=== PATIENT | male | born 1940 | race Caucasian/White ===

== ENCOUNTER 2018-03-04 07:31 | Emergency (ER) | payer MEDICARE ==
[~2018-03-04] VITALS: Ht 180.3 cm; Wt 113.4 kg
[2018-03-04] MEDS ORDERED: LYRICA50 MG PO (08:48)
[2018-03-04] MEDS ORDERED: ATORVASTATIN CA20 MG PO (08:48)
[2018-03-04] MEDS ORDERED: CLOPIDOGREL75 MG PO (09:01)
[2018-03-04] MEDS ORDERED: CARVEDILOL12.5 MG PO (09:01)
[2018-03-04] MEDS ORDERED: FLUTICASONE PRO16 GM (09:01)
[2018-03-04] MEDS ORDERED: BUMETANIDE1 MG PO (09:01)
[2018-03-04] MEDS ORDERED: PANTOPRAZOLE SO40 MG PO (09:01)
[2018-03-04] MEDS ORDERED: SPIRONOLACTONE25 MG PO (09:01)
[2018-03-04] MEDS ORDERED: TAMSULOSIN HCL0.4 MG PO (09:01)
[2018-03-04] MEDS ORDERED: RANITIDINE HCL150 MG PO (09:01)
[2018-03-04] MEDS ORDERED: GLIMEPIRIDE2 MG PO (09:01)
[2018-03-04 12:23] VITALS: BP 139/77
--- NOTE | 2018-03-08 12:18 | Diagnostic Imaging Report ---
PROCEDURE:CXR 2 VIEW - HOPD COMPARISON:None. INDICATIONS:cough FINDINGS: Lines: Left sided dual chamber pacemaker with leads overlying the right atrium and right ventricle. Lungs: Moderate lung volumes. Mild cephalization of venous flow without evidence of pulmonary edema. Mild patchy right basilar opacity with slight elevation of the right hemidiaphragm. No evidence of lobar consolidation. Mild bronchial wall thickening. Pleura: No evidence of pleural effusion or pneumothorax. Heart and mediastinum: The cardiomediastinal silhouette is unremarkable. Bones: No acute bony findings. CONCLUSION: Mild bronchial wall thickening, which could reflect bronchitis in a patient with cough. Mild patchy right basilar opacity, likely atelectasis. No evidence of lobar pneumonia. Dictated by: AYDEN MARTE M.D. on 03/04/2018 at 10:06 Electronically approved by: AYDEN MARTE M.D. on 03/04/2018 at 10:06
--- NOTE | 2018-03-08 12:18 | Diagnostic Imaging Report ---
PROCEDURE:ABDOMEN 1 VIEW(KUB)-HOPD COMPARISON:None. INDICATIONS:constipation FINDINGS: Non-obstructive bowel gas pattern. Small amount of stool is noted in the left colon. No evidence of free intraperitoneal air. No abnormal calcifications are noted. No acute bony findings. CONCLUSION: Unremarkable abdominal radiographs. No significantly elevated stool burden as clinically queried. Dictated by: AYDEN MARTE M.D. on 03/04/2018 at 10:09 Electronically approved by: AYDEN MARTE M.D. on 03/04/2018 at 10:09
== END 2018-03-04 11:01 | disposition home or self-care (01) ==
LOC: FSED 07:31
DX: R05 Cough (principal); R11.0 Nausea; J20.9 Acute bronchitis, unspecified; N18.9 Chronic kidney disease, unspecified; I10 Essential (primary) hypertension; E11.9 Type 2 diabetes mellitus without complications; I50.9 Heart failure, unspecified; Z95.5 Presence of coronary angioplasty implant and graft; Z95.810 Presence of automatic (implantable) cardiac defibrillator
CPT/HCPCS: 71046; 74018; 80053; 81003; 82553; 83880; 84484; 85025; 99284

== ENCOUNTER 2018-05-11 15:35 | Emergency (ER) | payer MEDICARE ==
[~2018-05-11] VITALS: Ht 180.3 cm; Wt 113.4 kg
[~2018-05-11 15:35] MED LIST: ATORVASTATIN CA20 MG PO; BUMETANIDE1 MG PO; CARVEDILOL12.5 MG PO; CLOPIDOGREL75 MG PO; FLUTICASONE PRO16 GM; GLIMEPIRIDE2 MG PO; LYRICA50 MG PO; PANTOPRAZOLE SO40 MG PO; RANITIDINE HCL150 MG PO; SPIRONOLACTONE25 MG PO; TAMSULOSIN HCL0.4 MG PO
--- OUTSIDE RECORDS SUMMARY | 2018-05-11 15:39 | XMS REPORT | Clinical Summary ---
Author Author MERRICK [facility] Address Unknown Phone Unavailable Care Team Providers Care Collar Cutter Name Role Phone Andres Carrion MD PCP Unavailable Allergies Comments Active Allergy Reactions Severity Noted Date Ticagrelor Shortness Of High 08/05/2017 Breath Medications End Date Status Medication Sig Dispensed Refills Start Date Active tamsulosin (FLOMAX) 0.4 Take 0.4 mg 0 mg Cp24 24 hr capsule by mouth daily. Active fluticasone (FLONASE) 50 2 sprays by 0 mcg/actuation nasal spray Nasal route daily. Active pregabalin (LYRICA) 100 Take 200 mg 0 MG capsule by mouth nightly . Active ranitidine (ZANTAC) 150 Take 150 mg 0 MG tablet by mouth nightly. Active aspirin 81 MG EC tablet Take 1 tablet 30 tablet 3 (81 mg total) 7 by mouth daily. Active atorvastatin (LIPITOR) 40 Take 1 tablet 30 tablet 3 MG tablet (40 mg total) 7 by mouth daily. Active glimepiride (AMARYL) 4 MG Take 1 tablet 30 tablet 3 tablet (4 mg total) 7 by mouth every morning before breakfast. Active pantoprazole (PROTONIX) Take 1 tablet 30 tablet 3 40 MG tablet (40 mg total) 7 by mouth daily. 05/19/2018 Active bumetanide (BUMEX) 2 MG Take 1 tablet 60 tablet 0 tablet (2 mg total) 7 by mouth 2 (two) times daily. Active insulin glargine (LANTUS) Inject 7 10 mL 0 100 unit/mL injection Units 7 subcutaneousl y nightly Use as directed . 05/19/2018 Active lisinopril Take 2 60 tablet 0 (PRINIVIL,ZESTRIL) 10 MG tablets (20 7 tablet mg total) by mouth 2 (two) times daily. 05/20/2018 Active spironolactone Take 1 tablet 30 tablet 0 (ALDACTONE) 50 MG tablet (50 mg total) 7 by mouth daily. 08/10/2018 Active carvedilol (COREG) 6.25 Take 1 tablet 180 tablet 0 MG tablet (6.25 mg 8 total) by mouth 2 (two) times daily with breakfast and dinner. 05/19/2017 Discontinued insulin glargine (LANTUS) Inject 15 0 100 unit/mL injection Units subcutaneousl y nightly Use as directed . 04/12/2018 clopidogrel (PLAVIX) 75 Take 1 tablet 30 tablet 0 mg tablet (75 mg total) 7 by mouth daily. 08/05/2017 Discontinued potassium chloride SA Take 1 tablet 30 tablet 0 (K-DUR,KLOR-CON) 20 MEQ (20 mEq 7 tablet total) by mouth daily. 05/19/2017 Discontinued lisinopril Take 1 tablet 60 tablet 0 (PRINIVIL,ZESTRIL) 10 MG (10 mg total) 7 tablet by mouth 2 (two) times daily. 05/05/2018 magnesium oxide (MAG-OX) Take 1 tablet 30 tablet 0 400 mg tablet (400 mg 7 total) by mouth daily. 05/19/2017 Discontinued torsemide (DEMADEX) 20 MG Take 2 tab 68 tablet 1 tablet twice daily 7 for 2 days then 2 tabs daily. 08/20/2017 minocycline Take 1 20 capsule 0 (MINOCIN,DYNACIN) 100 MG capsule (100 8 capsule mg total) by mouth every 12 (twelve) hours for 10 days. Active Problems Problem Noted Date S/P placement of cardiac pacemaker DDDPPM BSX MRI conditional left 08/09/2017 08/09/2017 Cardiogenic shock 08/06/2017 Chest pain 08/05/2017 Mobitz type 2 second degree AV block 08/05/2017 Hyperkalemia 08/05/2017 Sinus bradycardia 08/05/2017 Acute exacerbation of CHF (congestive heart failure) 05/18/2017 Heart block AV second degree; 2:1 05/17/2017 CHF exacerbation 05/17/2017 Dyspnea 04/09/2017 CHF (congestive heart failure) 04/08/2017 ATN (acute tubular necrosis) 03/31/2017 Physical deconditioning 03/28/2017 Patient is Yarsani 03/26/2017 Atrial fibrillation with rapid ventricular response 03/24/2017 CKD (chronic kidney disease) stage 2, GFR 60-89 ml/min 03/23/2017 SLOAN (acute kidney injury) 03/23/2017 Symptomatic bradycardia 03/23/2017 Unstable angina 03/23/2017 Acute chest pain 03/22/2017 Bradycardia 03/22/2017 Uncontrolled type 2 diabetes mellitus with hyperglycemia 03/22/2017 Hyperlipidemia 03/22/2017 Gastroesophageal reflux disease without esophagitis 03/22/2017 Coronary artery disease involving [place] coronary artery of [place] heart 03/21/2017 Acute on chronic systolic congestive heart failure 03/21/2017 History of pulmonary embolism 03/21/2017 ELADIO on CPAP 09/28/2016 Essential hypertension 09/28/2016 Type 2 diabetes mellitus with stage 3 chronic kidney disease, with 09/28/2016 long-term current use of insulin Chronic hyperkalemia 06/21/2016 CKD (chronic kidney disease) stage 3, GFR 30-59 ml/min 06/21/2014 Overview: Baseline creatinine ~ 1-1.6 Resolved Problems Problem Noted Date Resolved Date SSS (sick sinus syndrome) 03/21/2017 05/17/2017 Encounters Care Team Description Date Type Specialty Lamine Pemberton MD PACEMAKER GEN & LEADS - INSERTION W/ GENERAL ANESTHESIA (SING/DUAL/MULT) 08/09/2017 Surgery Mendy Templeton MD Barrantes Perez, Jairo Hernando, MD Baaklini, Walid Antoine, MD Rehman, Javed, MD Lozano, Pablo, MD Mobitz type 2 second degree AV block (Primary Dx); Bradycardia; Chest pain with high risk of acute coronary syndrome; Hyperkalemia; Acute renal failure, unspecified acute renal failure type (HCC); Symptomatic bradycardia; Chronic systolic congestive heart failure (HCC); Cardiogenic shock (HCC) 08/05/2017 Hospital Cardiology - Encounter 08/10/2017 08/05/2017 Orders Only General Internal Medicine Taylor, MD Bridgett Sexton, Duncan Swanson MD 05/17/2017 Hospital Cardiology - Encounter 05/19/2017 after 05/10/2017 Social History Date Tobacco Use Types Packs/Day Years Used Former Smoker Smokeless Tobacco: Never Used Alcohol Use Drinks/Week oz/Week Comments Yes occassionally Sex Assigned at Date Recorded Not on file Industry Job Start Date Occupation Not on file Not on file Not on file Travel End Travel History Travel Start No recent travel history available. Last Filed Vital Signs Time Taken Vital Sign Reading 08/10/2017 12:10 PM [facility] Blood Pressure 109/58 08/10/2017 12:10 PM [facility] Pulse 78 08/10/2017 12:10 PM [facility] Temperature 36.4 C (97.6 F) 08/10/2017 12:10 PM [facility] Respiratory Rate 18 08/10/2017 12:10 PM [facility] Oxygen Saturation 96% - Inhaled Oxygen - Concentration 08/10/2017 8:35 AM [facility] Weight 107 kg (236 lb) 08/05/2017 1:41 PM [facility] Height 180.3 cm (5' 11") 08/10/2017 8:35 AM [facility] Body Mass Index 32.92 Plan of Treatment Health Maintenance Due Date Last Done Comments INFLUENZA VACCINE 03/21/2018 Implants Device Identifier Shelf Expiration Date Model / Serial / Lot Implanted Type Area Manufactur er 01/18/2018 [id number] / / [id number] Device Clsr Angio-Seal Vip 6fr Cardiovasc Right: Groin ST TAHIRA [id number] - [id number] ular MED:CARDIA Implanted: Qty: 1 on 03/23/2017 by Esteban Álvarez MD 05/10/2019 5076-58 / [id number] / Lead Pacemkr Capsur Novus 58x1 Pacemaker N/A: Heart [employer]: 5076-58 - [id number] Lead CARD Implanted: Qty: 1 on 08/09/2017 by RHY:Lamine Garcia MD E MGT 05/17/2019 5076-45 / [id number] / Lead Pacemkr Capsur Novus 45cm Pacemaker N/A: Heart [employer]: 5076-45 - [id number] Lead CARD Implanted: Qty: 1 on 08/09/2017 by RHY:Lamine Garcia MD E MGT 06/23/2019 [id number] / [id number] / Pacemkr Accolade Mri Dr Mitchell Std [id number] Pacemakers Left: [place] - [id number] Subclavian SCI:CARDIA Implanted: Qty: 1 on 08/09/2017 by Lamine Anderson MD [place] [id number] 12/21/2017 [id number] / / [id number] Promus Premier Stents-Cor N/A: Coronary [place] Implanted: Qty: 1 on 03/23/2017 by melCatamaran Esteban Mann MD Procedures Comments Procedure Name Priority Date/Time Associated Diagnosis ARRYTHMIA IMPLANT REPORT 09/15/2017 - SCAN 12:11 PM CDT CARDIAC CATH REPORT - 08/11/2017 SCAN 9:10 PM [facility] ARRYTHMIA IMPLANT REPORT 08/11/2017 - SCAN 2:50 PM [facility] RHYTHM STRIP - SCAN 08/11/2017 2:50 PM [facility] REPORT OF PROCEDURE - 08/11/2017 ENDOSCOPY SCAN 2:50 PM [facility] POCT-GLUCOSE METER Routine 08/10/2017 12:36 PM [facility] POCT-GLUCOSE METER Routine 08/10/2017 9:10 AM [facility] XR CHEST 1 VIEW Routine 08/10/2017 PORTABLE/BEDSIDE 5:29 AM [facility] CBC W/PLT COUNT & AUTO Routine 08/10/2017 DIFFERENTIAL 4:44 AM [facility] BASIC METABOLIC PANEL (7) Routine 08/10/2017 4:44 AM [facility] CBC W/PLT COUNT & AUTO Routine 08/10/2017 DIFFERENTIAL 4:44 AM [facility] POCT-GLUCOSE METER Routine 08/09/2017 10:37 PM [facility] PACEMAKER GEN & LEADS - 08/09/2017 R00.1 BRADYCARDIA INSERTION W/ GENERAL 6:01 PM [facility] ANESTHESIA (SING/DUAL/MULT) Case Notes [id number] NO ANES/PT IS IP. 3607mGy XR CHEST 1 VIEW STAT 08/09/2017 PORTABLE/BEDSIDE 5:52 PM [facility] POCT-GLUCOSE METER Routine 08/09/2017 11:45 AM [facility] PROTHROMBIN TIME/INR STAT 08/09/2017 9:04 AM [facility] POCT-GLUCOSE METER Routine 08/09/2017 6:56 AM [facility] CBC W/PLT COUNT & AUTO Routine 08/09/2017 DIFFERENTIAL 4:33 AM [facility] PHOSPHORUS Routine 08/09/2017 4:33 AM [facility] MAGNESIUM Routine 08/09/2017 4:33 AM [facility] BASIC METABOLIC PANEL (7) Routine 08/09/2017 4:33 AM [facility] CBC W/PLT COUNT & AUTO Routine 08/09/2017 DIFFERENTIAL 4:33 AM [facility] POCT-GLUCOSE METER Routine 08/08/2017 11:30 PM [facility] URINALYSIS W/ MICROSCOPIC Routine 08/08/2017 6:45 PM [facility] MAGNESIUM Routine 08/08/2017 4:10 PM [facility] BASIC METABOLIC PANEL (7) Routine 08/08/2017 4:10 PM [facility] POCT-GLUCOSE METER Routine 08/08/2017 2:11 PM [facility] POCT-GLUCOSE METER Routine 08/08/2017 8:37 AM [facility] CBC W/PLT COUNT & AUTO Routine 08/08/2017 DIFFERENTIAL 3:41 AM [facility] PHOSPHORUS Routine 08/08/2017 3:41 AM [facility] CBC W/PLT COUNT & AUTO Routine 08/08/2017 DIFFERENTIAL 3:41 AM [facility] MAGNESIUM Routine 08/08/2017 3:41 AM [facility] BASIC METABOLIC PANEL (7) Routine 08/08/2017 3:41 AM [facility] POCT-GLUCOSE METER Routine 08/07/2017 8:05 PM [facility] POCT-GLUCOSE METER Routine 08/07/2017 5:29 PM [facility] POCT-GLUCOSE METER Routine 08/07/2017 12:03 PM [facility] POTASSIUM STAT 08/07/2017 9:43 AM [facility] URINALYSIS W/ MICROSCOPIC Routine 08/07/2017 9:43 AM [facility] POCT-GLUCOSE METER Routine 08/07/2017 6:32 AM [facility] CBC W/PLT COUNT & AUTO Routine 08/07/2017 DIFFERENTIAL 4:22 AM [facility] BASIC METABOLIC PANEL (7) Routine 08/07/2017 4:22 AM [facility] CBC W/PLT COUNT & AUTO Routine 08/07/2017 DIFFERENTIAL 4:22 AM [facility] MAGNESIUM Routine 08/07/2017 4:22 AM [facility] XR CHEST 1 VIEW STAT 08/07/2017 PORTABLE/BEDSIDE 3:44 AM [facility] BASIC METABOLIC PANEL (7) Routine 08/07/2017 12:09 AM [facility] POCT-GLUCOSE METER Routine 08/07/2017 12:07 AM [facility] XR CHEST 1 VIEW STAT 08/06/2017 PORTABLE/BEDSIDE 9:24 PM [facility] POCT-GLUCOSE METER Routine 08/06/2017 5:23 PM [facility] BASIC METABOLIC PANEL (7) Routine 08/06/2017 5:23 PM [facility] POCT-GLUCOSE METER Routine 08/06/2017 1:02 PM [facility] BASIC METABOLIC PANEL (7) STAT 08/06/2017 12:59 PM [facility] POCT-GLUCOSE METER Routine 08/06/2017 8:03 AM [facility] CBC W/PLT COUNT & AUTO Routine 08/06/2017 DIFFERENTIAL 4:22 AM [facility] CBC W/PLT COUNT & AUTO Routine 08/06/2017 DIFFERENTIAL 4:22 AM [facility] MAGNESIUM Routine 08/06/2017 4:22 AM [facility] BASIC METABOLIC PANEL (7) Routine 08/06/2017 4:22 AM [facility] POCT-GLUCOSE METER Routine 08/06/2017 12:53 AM [facility] CRITICAL CARE Routine 08/05/2017 10:10 PM [facility] TSH/FREE T4 IF INDICATED Routine 08/05/2017 9:09 PM [facility] LACTIC ACID, VENOUS, Routine 08/05/2017 WHOLE BLOOD 9:09 PM [facility] POCT-GLUCOSE METER Routine 08/05/2017 8:49 PM [facility] GLUCOSE Routine 08/05/2017 7:22 PM [facility] LACTIC ACID, VENOUS, Routine 08/05/2017 WHOLE BLOOD 7:22 PM [facility] POTASSIUM STAT 08/05/2017 7:22 PM [facility] XR CHEST 1 VIEW STAT 08/05/2017 PORTABLE/BEDSIDE 4:07 PM [facility] B-TYPE NATRIURETIC FACTOR STAT 08/05/2017 (BNP) 2:59 PM [facility] CBC W/PLT COUNT & AUTO STAT 08/05/2017 DIFFERENTIAL 2:46 PM [facility] CREATINE KINASE (CK), STAT 08/05/2017 TOTAL AND MB 2:46 PM [facility] TROPONIN I STAT 08/05/2017 2:46 PM [facility] CBC W/PLT COUNT & AUTO STAT 08/05/2017 DIFFERENTIAL 2:46 PM [facility] BASIC METABOLIC PANEL (7) STAT 08/05/2017 2:46 PM [facility] ECG 12-LEAD Routine 08/05/2017 1:51 PM [facility] Procedure Note - Interface, External Ris In - 08/05/2017 5:19 PM [facility] Ventricula r Rate 32 BPM Atrial Rate 66 BPM P-R Interval 256 ms QRS Duration 164 ms Q-T Interval 518 ms QTC Calculatio n(Bazett) 378 ms P [place] 65 degrees R [place] -64 degrees T [place] 11 degrees Sinus rhythm with 2nd degree A-V block with 2:1 A-V conduction Left axis deviation Left bundle branch block Abnormal ECG When compared with ECG of 7 00:37, Vent. rate has decreased BY 43 BPM QRS axis Shifted left T wave inversion now evident in Inferior leads T wave inversion now evident in Lateral leads QT has shortened ECG 12-LEAD STAT 08/05/2017 1:51 PM [facility] REPORT OF PROCEDURE - 05/20/2017 ENDOSCOPY SCAN 10:00 AM [facility] RHYTHM STRIP - SCAN 05/20/2017 10:00 AM [facility] RHYTHM STRIP - SCAN 05/20/2017 10:00 AM [facility] POCT-GLUCOSE METER Routine 05/19/2017 8:18 AM [facility] BASIC METABOLIC PANEL (7) Routine 05/19/2017 4:06 AM [facility] POCT-GLUCOSE METER Routine 05/18/2017 9:27 PM [facility] POCT-GLUCOSE METER Routine 05/18/2017 5:29 PM [facility] POCT-GLUCOSE METER Routine 05/18/2017 12:34 PM [facility] ECHOCARDIOGRAM REPORT - 05/18/2017 SCAN 11:22 AM [facility] 2D ECHO W/ DOPPLER DANIEL 05/18/2017 (CW/PW/COLOR) 7:54 AM [facility] POCT-GLUCOSE METER Routine 05/18/2017 7:27 AM [facility] MAGNESIUM Routine 05/18/2017 3:55 AM [facility] BASIC METABOLIC PANEL (7) Routine 05/18/2017 3:55 AM [facility] POCT-GLUCOSE METER Routine 05/17/2017 9:00 PM [facility] POCT-GLUCOSE METER Routine 05/17/2017 5:06 PM [facility] MAGNESIUM Routine 05/17/2017 11:22 AM [facility] BASIC METABOLIC PANEL (7) Routine 05/17/2017 11:22 AM [facility] after 05/10/2017 Results * ARRYTHMIA IMPLANT REPORT - SCAN (09/15/2017 12:11 PM CDT) Only the most recent of 2 results within the time period is included. Narrative Performed At * CARDIAC CATH REPORT - SCAN (08/11/2017 9:10 PM [facility]) Narrative Performed At * RHYTHM STRIP - SCAN (08/11/2017 2:50 PM [facility]) Only the most recent of 3 results within the time period is included. Narrative Performed At * EKG-SCANNED (08/11/2017 2:50 PM [facility]) Only the most recent of 2 results within the time period is included. Narrative Performed At * POC-Glucose meter (08/10/2017 12:36 PM [facility]) Only the most recent of 25 results within the time period is included. POC-Glucose Meter 260 (H)Comment: TESTED AT 70 - 110 mg/dL [facility] [address] [facility] [id number] Specimen Blood Performing Organization Address City/State/Zipcode Phone Number [place] [phone] [place], [place] [phone] [facility] * XR chest 1 view portable/bedside (08/10/2017 5:29 AM [facility]) Only the most recent of 5 results within the time period is included. Narrative Performed At FINAL REPORT GE [facility] Chest one view INDICATION: Pacemaker COMPARISON: 08/09/2017 IMPRESSION: A left chest pacemaker is in place with leads in the right atrium and right ventricle. There are overlying skin jeremiah. No pneumothorax is seen. The cardiac silhouette is enlarged. There are low lung volumes with pulmonary vascular congestion and stable basilar opacities suggestive of atelectasis. No significant pleural effusion is seen. The bones appear unchanged. Signed: Jesika Kwan MD Report Verified Date/Time:08/10/2017 09:02:37 Reading Location: [facility] Radiology Reading Room Procedure Note Interface, External Ris In - 08/10/2017 9:04 AM [facility] FINAL REPORT Chest one view INDICATION: Pacemaker COMPARISON: 08/09/2017 IMPRESSION: A left chest pacemaker is in place with leads in the right atrium and right ventricle. There are overlying skin jeremiah. No pneumothorax is seen. The cardiac silhouette is enlarged. There are low lung volumes with pulmonary vascular congestion and stable basilar opacities suggestive of atelectasis. No significant pleural effusion is seen. The bones appear unchanged. Signed: Jesika Kwan MD Report Verified Date/Time: 08/10/2017 09:02:37 Reading Location: [facility] Radiology Reading Room Performing Organization Address City/State/Zipcode Phone Number [facility] * CBC with platelet count + automated diff (08/10/2017 4:44 AM [facility]) Only the most recent of 6 results within the time period is included. WBC 9.6 3.5 - 10.5 K/L [facility] RBC 4.04 (L) 4.63 - 6.08 M/L [facility] Hemoglobin 11.0 (L) 13.7 - 17.5 GM/DL [facility] Hematocrit 33.1 (L) 40.1 - 51.0 % [facility] MCV 81.9 79.0 - 92.2 fL [facility] MCH 27.2 25.7 - 32.2 pg [facility] MCHC 33.2 32.3 - 36.5 GM/DL [facility] RDW 15.1 (H) 11.6 - 14.4 % [facility] Platelets 137 (L) 150 - 450 K/CU MM [facility] MPV 11.5 9.4 - 12.4 fL [facility] nRBC 0 0 - 0 /100 WBC [facility] % Neutros 64 % [facility] % Lymphs 16 % [facility] % Monos 12 % [facility] % Eos 7 % [facility] % Baso 1 % [facility] # Neutros 6.18 (H) 1.78 - 5.38 K/L [facility] # Lymphs 1.56 1.32 - 3.57 K/L [facility] # Monos 1.11 (H) 0.30 - 0.82 K/L [facility] # Eos 0.65 (H) 0.04 - 0.54 K/L [facility] # Baso 0.07 0.01 - 0.08 K/L [facility] Immature 0 0 - 1 % [facility] Granulocytes-[facility] Specimen Blood Performing Organization Address City/State/Zipcode Phone Number [facility] [address] [place] [address] MEDICAL [facility]ENTER * Basic metabolic panel (08/10/2017 4:44 AM [facility]) Only the most recent of 13 results within the time period is included. Sodium 140 136 - 145 meq/L [facility] Potassium 3.8 3.5 - 5.1 meq/L [facility] Chloride 103 98 - 107 meq/L [facility] CO2 27 22 - 29 meq/L [facility] BUN 50 (H) 7 - 21 mg/dL [facility] Creatinine 1.29 (H) 0.57 - 1.25 mg/dL [facility] Glucose 110 (H) 70 - 105 mg/dL [facility] Calcium 8.9 8.4 - 10.2 mg/dL [facility] EGFR 54Comment: ESTIMATED GFR IS mL/min/1.73 sq m [facility] NOT ACCURATE CREATININE [facility] CLEARANCE IN PREDICTING GLOMERULAR FILTRATION RATE. ESTIMATED GFR IS NOT APPLICABLE FOR DIALYSIS PATIENTS. Specimen Blood Performing Organization Address City/[facility] [place] [address] [facility] * Prothrombin time/INR (08/09/2017 9:04 AM [facility]) Protime 15.3 (H) 11.7 - 14.7 seconds [facility] INR 1.2 <=5.9 [facility] Specimen Blood - Line, Venous Narrative Performed At RECOMMENDED COUMADIN/WARFARIN INR THERAPY RANGES [facility] STANDARD DOSE: 2.0 - 3.0 Includes: PROPHYLAXIS for venous thrombosis, [facility] systemic embolization; TREATMENT for venous thrombosis and/or pulmonary embolus. HIGH RISK: Target INR is 2.5-3.5 for patients with mechanical heart valves. Performing Organization Address [facility] [place] [address] [phone] [place] [address] * Phosphorus (08/09/2017 4:33 AM [facility]) Only the most recent of 2 results within the time period is included. Phosphorus 3.5 2.3 - 4.7 mg/dL [facility] Specimen Blood - Central Venous Line Performing Organization Address [facility] Phone Number [address] [address] [phone] [place] [address] * Magnesium (08/09/2017 4:33 AM [facility]) Only the most recent of 7 results within the time period is included. Magnesium 2.0 1.6 - 2.6 mg/dL [facility] Specimen Blood - Central Venous Line Performing Organization Address City/State/Zipcode Phone Number [facility] [address] [place] [address] [facility] * Urinalysis w/Microscopic (08/08/2017 6:45 PM [facility]) Only the most recent of 2 results within the time period is included. Color, UA [place] [facility] Clarity, UA Hazy [facility] Specific [place], UA 1.010 1.001 - 1.035 [facility] pH, UA 5.0 5.0 - 8.0 [facility] Protein, UA 50 mg/dL (A) Negative [facility] Glucose, UA Negative Negative [facility] Ketones, UA Negative Negative [facility] Bilirubin, UA Negative Negative [facility] Blood, UA Moderate (A) Negative [facility] Nitrite, UA Negative Negative [facility] Leukocytes, UA Large (A) Negative [facility] Urobilinogen, UA 0.2 0.2 - 1.0 mg/dL [facility] RBC, UA >182 /HPF [facility] WBC, UA <1 /HPF [facility] Mucus Rare [facility] Hyaline Casts, UA 19 /LPF [facility] Specimen Source Urine, Zelaya [facility] Specimen Urine - Urine, Zelaya Performing Organization Address City/State/Zipcode Phone Number [facility] [address] [place] [address] [facility] * Potassium (08/07/2017 9:43 AM [facility]) Only the most recent of 2 results within the time period is included. Potassium 4.7 3.5 - 5.1 meq/L [facility] Specimen Blood Narrative Performed At Call Renal if >elevated [facility] Performing Organization Address [facility] Phone Number [facility] [address] [place] [address] [facility] * CRITICAL CARE (08/05/2017 10:10 PM [facility]) Narrative Performed At Mendy Templeton MD 08/05/2017 10:10 PM Critical Care Performed by: MENDY TEMPLETON Authorized by: HOLLAND SHAHID Total critical care time: 125 minutes Critical care time was exclusive of separately billable procedures and treating other patients and teaching time. Critical care was necessary to treat or prevent imminent or life-threatening deterioration of the following conditions: cardiac failure, circulatory failure, metabolic crisis, renal failure and shock. Critical care was time spent personally by me on the following activities: blood draw for specimens, development of treatment plan with patient or surrogate, discussions with consultants, discussions with primary provider, interpretation of cardiac output measurements, evaluation of patient's response to treatment, examination of patient, obtaining history from patient or surrogate, ordering and performing treatments and interventions, ordering and review of laboratory studies, ordering and review of radiographic studies, pulse oximetry, re-evaluation of patient's condition, review of old charts and transcutaneous pacing. * TSH/Free T4 If Indicated (08/05/2017 9:09 PM [facility]) TSH 1.99 0.35 - 4.94 uIU/mL [facility] Specimen Blood Performing Organization Address [facility] Phone Number [facility] [address] [place] [address] [phone] * Lactic acid, venous, whole blood (08/05/2017 9:09 PM [facility]) Only the most recent of 2 results within the time period is included. Lactate, Venous 1.1 0.5 - 2.2 mmol/L [facility] Specimen Blood Narrative Performed At Effective 10/23/2015: Units/Reference Range Change [facility] New: 0.5-2.2 mmol/LPrevious: 5-20 mg/dL [facility] Performing Organization Address [facility]/[place] [address] [facility] * Glucose (08/05/2017 7:22 PM [facility]) Glucose 86 70 - 105 mg/dL [facility] Specimen Blood - Line, Venous Performing Organization Address [facility] [place] [phone] [place] [address] * B-type Natriuretic Factor (BNP) (08/05/2017 2:59 PM [facility]) BNP 40 0 - 100 pg/mL [facility] Specimen Blood Performing Organization Address [facility] [place] [address] [phone] * Troponin I (08/05/2017 2:46 PM [facility]) Troponin I 0.02 0.00 - 0.03 ng/mL [facility] Specimen Blood - Arm, Right Narrative Performed At Troponin I (TnI) levels must be interpreted in the context of the presenting [facility] symptoms and the clinical findings. Elevated TnI levels indicate myocardial [facility] damage, but are not specific for ischemic heart disease. Elevated TnI levels are seen in patients with other cardiac conditions (including myocarditis and congestive heart failure), and slight TnI elevations occur in patients with other conditions, including sepsis, renal failure, acidosis, acute neurological disease, and persistent tachyarrhythmia. Performing Organization Address [facility] [place] [address] [facility] * Creatine Kinase (CK), Total and MB (08/05/2017 2:46 PM [facility]) Total CK 61 29 - 200 U/L [facility] CK-MB 3.7 0.0 - 6.6 ng/mL [facility] MB Relative Index 6.1 % [facility] Specimen Blood - Arm, Right Narrative Performed At CK-MB Reference Range: MERRICK KAUR <6.7Normal [facility] 6.7-10.0Borderline >10.0 Abnormal Performing Organization Address City/State/Zipcode Phone Number MERRICK KAUR [facility] [address] [place] [address] [facility] * ECG 12 lead (08/05/2017 1:51 PM [facility]) Narrative Performed At Ventricular Rate 32 BPM GE MUSE Atrial Rate 66 BPM P-R Interval 256 ms QRS Duration 164 ms Q-T Interval 518 ms QTC Calculation(Bazett) 378 ms P [place] 65 degrees R [place] -64 degrees T [place] 11 degrees Sinus bradycardia with 2:1 A-V conduction Left axis deviation Left bundle branch block Abnormal ECG When compared with ECG of 08-APR-2017 00:37, Vent. rate has decreased BY43 BPM QRS axis Shifted left T wave inversion now evident in Inferior leads T wave inversion now evident in Lateral leads Consider ischemia, metabolic, or drug effect. Clinical correlation needed. Confirmed by Jovi JOHNSON MICHAEL ([id number]) on 08/06/2017 6:54:29 AM Procedure Note Interface, External Ris In - 08/06/2017 6:54 AM [facility] Ventricular Rate 32 BPM Atrial Rate 66 BPM P-R Interval 256 ms QRS Duration 164 ms Q-T Interval 518 ms QTC Calculation(Bazett) 378 ms P [place] 65 degrees R [place] -64 degrees T [place] 11 degrees Sinus bradycardia with 2:1 A-V conduction Left axis deviation Left bundle branch block Abnormal ECG When compared with ECG of 08-APR-2017 00:37, Vent. rate has decreased BY 43 BPM QRS axis Shifted left T wave inversion now evident in Inferior leads T wave inversion now evident in Lateral leads Consider ischemia, metabolic, or drug effect. Clinical correlation needed. Confirmed by Jovi JOHNSON MICHAEL ([id number]) on 08/06/2017 6:54:29 AM Performing Organization Address City/State/Zipcode Phone Number [employer] 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 HGB 10.9 HCT 34.2 % Contrast Medium: Definity. Height: 71 inches Weight: 104.33 kg (230 lbs) BSA: 2.24 m^2 BMI: 32.08 kg/m^2 HR: 43 bpm BP: 149/68 mmHg Previous Study No prior exam available for comparison. Signature Findings Technical Quality: Technically difficult exam. Left Ventricle The left ventricle is chamber size (by PSLAX dimension) is moderately enlarged (male - LVIDd 6.4-6.8cm) . Mild concentric LV hypertrophy. All of the LV segments are mildly hypokinetic . Global LV systolic function mildly reduced . Estimated LVEF by qualitative assessment is mildly reduced (40-44%) . LV endocardium is partially visualized with IV ultrasound enhancing agent. Left AtriumLA size is moderately enlarged . Right VentricleNormal right ventricle structure and function. Right Atrium Normal right atrium. Aortic Valve Mild AoV cusp thickening. Mild aortic regurgitation. Mitral Valve Mild MV leaflet thickening. Mild mitral regurgitation. Tricuspid ValveA trace of tricuspid regurgitation. Unable to estimate peak systolic PA pressure; inadequate TR velocity signal. Pulmonic Valve Mild pulmonary regurgitation. AortaAortic root size (SInus of Valsalva diameter) is normal . PericardiumNo evidence of pericardial effusion. IVC/SVC/PA/PV/PleuralThe estimated RA pressure by IVC dynamics 5-10mmHg . Chambers/Structures Left Atrium LA Dimension: 4.62 cmLA Area: 28.03 cm^2 LA Volume: 97.53 ml LA Vol. 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 HGB 10.9 HCT 34.2 % Contrast Medium: Definity. Height: 71 inches Weight: 104.33 kg (230 lbs) BSA: 2.24 m^2 BMI: 32.08 kg/m^2 HR: 43 bpm BP: 149/68 mmHg Previous Study No prior exam available for comparison. Signature Findings Technical Quality: Technically difficult exam. Left Ventricle The left ventricle is chamber size (by PSLAX dimension) is moderately enlarged (male - LVIDd 6.4-6.8cm) . Mild concentric LV hypertrophy. All of the LV segments are mildly hypokinetic . Global LV systolic function mildly reduced . Estimated LVEF by qualitative assessment is mildly reduced (40-44%) . LV endocardium is partially visualized with IV ultrasound enhancing agent. Left Atrium LA size is moderately enlarged . Right Ventricle Normal right ventricle structure and function. Right Atrium Normal right atrium. Aortic Valve Mild AoV cusp thickening. Mild aortic regurgitation. Mitral Valve Mild MV leaflet thickening. Mild mitral regurgitation. Tricuspid Valve A trace of tricuspid regurgitation. Unable to estimate peak systolic PA pressure; inadequate TR velocity signal. Pulmonic Valve Mild pulmonary regurgitation. Aorta Aortic root size (SInus of Valsalva diameter) is normal . Pericardium No evidence of pericardial effusion. IVC/SVC/PA/PV/Pleural The estimated RA pressure by IVC dynamics 5-10mmHg . Chambers/Structures Left Atrium LA Dimension: 4.62 cm LA Area: 28.03 cm^2 LA Volume: 97.53 ml LA Vol. Index: 44 ml/m^2 Left Ventricle LVIDd: 6.47 cm LV Septum Diastolic: 1.19 cm LV PW Diastolic: 1.2 cm Aorta Ao Root S of Ruby.: 3.78 cm Performing Organization Address City/State/Zipcode Phone Number [facility] ECHO HEARTLAB MKCKESSON [facility] after 05/10/2017 Insurance Payer Benefit Subscriber ID Type Phone Address Plan / Group [facility] xxxxxxxxxxx MEDICARE ADV Advance Directives Patient has advance care planning documents, and code status on file. For more i nformation, please contact: [facility] [address] [place] [address] Date Inactivated Comments Code Status Date Activated 08/10/2017 5:58 PM Full Code 08/05/2017 4:43 PM This code status was determined by: Patient 05/19/2017 4:41 PM Full Code 05/17/2017 10:58 AM This code status was determined by: Patient 05/04/2017 6:24 PM Full Code 05/03/2017 2:50 PM This code status was determined by: Patient 04/11/2017 8:18 PM Full Code 04/08/2017 2:33 AM This code status was determined by: Patient 04/01/2017 7:17 PM Full Code 03/22/2017 4:01 PM This code status was determined by: Patient
--- OUTSIDE RECORDS SUMMARY | 2018-05-11 15:40 | XMS REPORT ---
[facility] Address Unknown Phone Unavailable Care Team Providers Care Administrative Services Assistant Name Role Phone Johnny ZEE Unavailable Unavailable YOKASTAANTONINA Unavailable Unavailable MICHEL, CROWELL MIA Unavailable Unavailable DEWAYNE, EVELYN Unavailable Unavailable SCHEMPP, LOPEZ Unavailable Unavailable SOBOLEVSKY, ZANE SHAWNEE Unavailable Unavailable YARED, DANNY DAVE Unavailable Unavailable Problems This patient has no known problems. Allergies, Adverse Reactions, Alerts This patient has no known allergies or adverse reactions. Medications This patient has no known medications. Results Test Description Test Time Test Comments Text Results Atomic Results Result Comments ABDOMEN 1 VIEW(KUB)-HOPD 2018-03-04 10:09:00 [place] [address] Patient Name: EDITH URIAS MR #: [id number] : 1940 Age/Sex: 77/M Req #: [id number] Adm Physician: Ordered by: EVAN ZEE MD Report #: [id number] Location: [facility] Room/Bed: Procedure: [id number] HOPD/ABDOMEN 1 VIEW(KUB)-HOPD Exam Date: 03/04/18 Exam Time: 0843 REPORT STATUS: Signed PROCEDURE: ABDOMEN 1 VIEW(KUB)-HOPD COMPARISON: None. INDICATIONS: constipation FINDINGS: Non-obstructive bowel gas pattern. Small amount of stool is noted in the left colon. No evidence of free intraperitoneal air. No abnormal calcifications are noted. No acute bony findings. CONCLUSION: Unremarkable abdominal radiographs. No significantly elevated stool burden as clinically queried. Dictated by: AYDEN MARTE M.D. on 03/04/2018 at 10:09 Electronically approved by: AYDEN MARTE M.D. on 03/04/2018 at 10:09 Dictated By: AYDEN MARTE MD 1009 Transcribed By: JO on 03/04/18 1009 COPY TO: EVAN ZEE MD CXR 2 VIEW - HOPD 2018-03-04 10:06:00 [place] [address] Patient Name: EDITH URIAS MR #: [id number] : 1940 Age/Sex: 77/M Req #: [id number] Adm Physician: Ordered by: EVAN ZEE MD Report #: [id number] Location: [facility] Room/Bed: Procedure: [id number] HOPD/CXR 2 VIEW - HOPD Exam Date: 03/04/18 Exam Time: 0843 REPORT STATUS: Signed PROCEDURE: CXR 2 VIEW - HOPD COMPARISON: None. INDICATIONS: cough FINDINGS: Lines: Left sided dual chamber pacemaker with leads overlying the right atrium and right ventricle. Lungs: Moderate lung volumes. Mild cephalization of venous flow without evidence of pulmonary edema. Mild patchy right basilar opacity with slight elevation of the right hemidiaphragm. No evidence of lobar consolidation. Mild bronchial wall thickening. Pleura: No evidence of pleural effusion or pneumothorax. Heart and mediastinum: The cardiomediastinal silhouette is unremarkable. Bones: No acute bony findings. CONCLUSION: Mild bronchial wall thickening, which could reflect bronchitis in a patient with cough. Mild patchy right basilar opacity, likely atelectasis. No e vidence of lobar pneumonia. Dictated by: AYDEN MARTE M.D. on 03/04/2018 at 10:06 Electronically approved by: AYDEN MARTE M.D. on 03/04/2018 at 10:06 Dictated By: AYDEN MARTE MD 1006 Transcribed By: JO on 03/04/18 1006 COPY TO: EVAN ZEE MD POCT-GLUCOSE METER 2017-08-10 12:44:00 POC-GLUCOSE METER (BEAKER) (test bqar=0986) 260 mg/dL 70-110 TESTED AT [facility] [address] [facility] [address] POCT-GLUCOSE [id number] 09:13:00* Test Item Value Reference Range Comments POC-GLUCOSE METER (BEAKER) (test ojqj=9293) 121 mg/dL 70-110 TESTED AT [facility] [address] [facility] [address] RAD, CHEST, 1 VIEW, NON [id number] 09:02:00Upright portable CXR at bedside. Remove telemetry wires prior to taking the X-ray.Reason for exam:->PPMShould this be performed at the bedside?->YesFINAL REPORT Chest one view INDICATION: Pacemaker COMPARISON: [...] The bones appear unchanged. Signed: Jesika Kwan MDReport Verified Date/Time: 08/10/2017 09:02:37 Reading Location: [facility] Radiology Reading Room C METABOLIC [id number] 06:14:00* Test Item Value Reference Range Comments SODIUM (BEAKER) (test yqdm=625) 140 meq/L 136-145 POTASSIUM (BEAKER) (test cvom=018) 3.8 meq/L 3.5-5.1 CHLORIDE (BEAKER) (test ltzn=076) 103 meq/L 98-107 CO2 (BEAKER) (test lgju=807) 27 meq/L 22-29 BLOOD UREA NITROGEN (BEAKER) (test uosk=939) 50 mg/dL 7-21 CREATININE (BEAKER) (test hkht=236) 1.29 mg/dL 0.57-1.25 GLUCOSE RANDOM (BEAKER) (test lnws=651) 110 mg/dL 70-105 CALCIUM (BEAKER) (test kmvn=959) 8.9 mg/dL 8.4-10.2 EGFR (BEAKER) (test soec=3531) 54 mL/min/1.73 sq m ESTIMATED GFR IS NOT ACCURATE CREATININE CLEARANCE IN PREDICTING GLOMERULAR FILTRATION RATE. ESTIMATED GFR IS NOT APPLICABLE FOR DIALYSIS PATIENTS. CBC W/PLT COUNT & AUTO [id number] 05:49:00* Test Item Value Reference Range Comments WHITE BLOOD CELL COUNT (BEAKER) (test crye=405) 9.6 K/ L 3.5-10.5 RED BLOOD CELL COUNT (BEAKER) (test vhqy=920) 4.04 M/ L 4.63-6.08 HEMOGLOBIN (BEAKER) (test dqzu=063) 11.0 GM/DL 13.7-17.5 HEMATOCRIT (BEAKER) (test kzwt=545) 33.1 % 40.1-51.0 MEAN CORPUSCULAR VOLUME (BEAKER) (test bmno=330) 81.9 fL 79.0-92.2 MEAN CORPUSCULAR HEMOGLOBIN (BEAKER) (test vibr=731) 27.2 pg 25.7-32.2 MEAN CORPUSCULAR HEMOGLOBIN CONC (BEAKER) (test illh=567) 33.2 GM/DL 32.3-36.5 RED CELL DISTRIBUTION WIDTH (BEAKER) (test bmpl=626) 15.1 % 11.6-14.4 PLATELET COUNT (BEAKER) (test cxse=019) 137 K/CU MM 150-450 MEAN PLATELET VOLUME (BEAKER) (test ktjk=614) 11.5 fL 9.4-12.4 NUCLEATED RED BLOOD CELLS (BEAKER) (test uqpl=712) 0 /100 WBC 0-0 NEUTROPHILS RELATIVE PERCENT (BEAKER) (test rrvo=380) 64 % LYMPHOCYTES RELATIVE PERCENT (BEAKER) (test itms=719) 16 % MONOCYTES RELATIVE PERCENT (BEAKER) (test aexy=186) 12 % EOSINOPHILS RELATIVE PERCENT (BEAKER) (test mavv=089) 7 % BASOPHILS RELATIVE PERCENT (BEAKER) (test jqge=052) 1 % NEUTROPHILS ABSOLUTE COUNT (BEAKER) (test xpjq=629) 6.18 K/ L 1.78-5.38 LYMPHOCYTES ABSOLUTE COUNT (BEAKER) (test xqlg=627) 1.56 K/ L 1.32-3.57 MONOCYTES ABSOLUTE COUNT (BEAKER) (test xtnb=672) 1.11 K/ L 0.30-0.82 EOSINOPHILS ABSOLUTE COUNT (BEAKER) (test yexq=746) 0.65 K/ L 0.04-0.54 BASOPHILS ABSOLUTE COUNT (BEAKER) (test wqzb=846) 0.07 K/ L 0.01-0.08 IMMATURE GRANULOCYTES-RELATIVE PERCENT (BEAKER) (test zwdh=1552) 0 % 0-1 POCT-GLUCOSE [id number] 22:40:00* Test Item Value Reference Range Comments POC-GLUCOSE METER (BEAKER) (test dikf=6759) 260 mg/dL 70-110 TESTED AT [address] [address] RAD, CHEST, 1 VIEW, NON [id number] 18:31:00Upright portable CXR stat on arrival to the holding area. Remove telemetry wires prior to CXR. Page Deb Silvestre PA-C [phone] when X-ray has been done.Reason for exam:->PPMShould this be performed at the bedside?->YesFINAL REPORT TECHNIQUE: Frontal view of the chest. INDICATION: 76-year-old man after implanted cardiac device placement. COMPARISON: Chest radiograph 08/07/2017. FINDINGS: LINES/TUBES: Interval removal of left internal jugular central venous catheter and temporary pacing wire. New implanted cardiac device in the left chest with intact leads which terminate over the expected regions of the right atrium and right ventricle. LUNGS: The lungs are well inflated and clear. PLEURA: No pneumothorax or significant pleural effusion. HEART AND MEDIASTINUM: The cardiomediastinal silhouette is borderline enlarged. SOFT TISSUES AND BONES: Degenerative changes of the visualized spine. Soft tissues are unremarkable. IMPRESSION:Lines/tubes as above. No acute cardiopulmonary abnormalities. Signed: Michel Strickland Verified Date/Time: 08/09/2017 18:31:58 Reading Location: [address] Consult Reading Room -GLUCOSE [id number] 11:51:00* Test Item Value Reference Range Comments POC-GLUCOSE METER (BEAKER) (test mddn=0980) 132 mg/dL 70-110 TESTED AT [address] [address] PROTHROMBIN [id number] 09:40:00* Test Item Value Reference Range Comments PROTIME (BEAKER) (test ocii=235) 15.3 seconds 11.7-14.7 INR (BEAKER) (test ppjp=346) 1.2 <=5.9 RECOMMENDED COUMADIN/WARFARIN INR THERAPY RANGESSTANDARD DOSE: 2.0 - 3.0 Inclu breanne: PROPHYLAXIS for venous thrombosis, systemic embolization; TREATMENT for cordelia ous thrombosis and/or pulmonary embolus.HIGH RISK: Target INR is 2.5-3.5 for pat ients with mechanical heart valves.POCT-GLUCOSE [id number] 09:36:00* Test Item Value Reference Range Comments POC-GLUCOSE METER (BEAKER) (test aovk=4700) 131 mg/dL 70-110 TESTED AT [place] [id number] [facility] [address] [id number] 05:31:00* Test Item Value Reference Range Comments PHOSPHORUS (BEAKER) (test pxwq=347) 3.5 mg/dL 2.3-4.7 [id number] 05:31:00* Test Item Value Reference Range Comments MAGNESIUM (BEAKER) (test vhix=959) 2.0 mg/dL 1.6-2.6 BASIC METABOLIC [id number] 05:31:00* Test Item Value Reference Range Comments SODIUM (BEAKER) (test aefy=757) 139 meq/L 136-145 POTASSIUM (BEAKER) (test fphp=552) 3.6 meq/L 3.5-5.1 CHLORIDE (BEAKER) (test vicn=199) 103 meq/L 98-107 CO2 (BEAKER) (test ezdc=486) 26 meq/L 22-29 BLOOD UREA NITROGEN (BEAKER) (test bfmn=373) 55 mg/dL 7-21 CREATININE (BEAKER) (test trqi=315) 1.41 mg/dL 0.57-1.25 GLUCOSE RANDOM (BEAKER) (test hdpf=695) 108 mg/dL 70-105 CALCIUM (BEAKER) (test flsb=660) 9.0 mg/dL 8.4-10.2 EGFR (BEAKER) (test zkjg=0984) 49 mL/min/1.73 sq m ESTIMATED GFR IS NOT ACCURATE CREATININE CLEARANCE IN PREDICTING GLOMERULAR FILTRATION RATE. ESTIMATED GFR IS NOT APPLICABLE FOR DIALYSIS PATIENTS. CBC W/PLT COUNT & AUTO [id number] 04:51:00* Test Item Value Reference Range Comments WHITE BLOOD CELL COUNT (BEAKER) (test tonj=813) 9.1 K/ L 3.5-10.5 RED BLOOD CELL COUNT (BEAKER) (test bzoa=251) 4.12 M/ L 4.63-6.08 HEMOGLOBIN (BEAKER) (test wjuw=377) 11.1 GM/DL 13.7-17.5 HEMATOCRIT (BEAKER) (test ebac=278) 33.9 % 40.1-51.0 MEAN CORPUSCULAR VOLUME (BEAKER) (test sllh=497) 82.3 fL 79.0-92.2 MEAN CORPUSCULAR HEMOGLOBIN (BEAKER) (test ppgu=076) 26.9 pg 25.7-32.2 MEAN CORPUSCULAR HEMOGLOBIN CONC (BEAKER) (test otom=136) 32.7 GM/DL 32.3-36.5 RED CELL DISTRIBUTION WIDTH (BEAKER) (test xstm=744) 15.2 % 11.6-14.4 PLATELET COUNT (BEAKER) (test vgvo=329) 122 K/CU MM 150-450 MEAN PLATELET VOLUME (BEAKER) (test nyhl=088) 11.6 fL 9.4-12.4 NUCLEATED RED BLOOD CELLS (BEAKER) (test cukd=418) 0 /100 WBC 0-0 NEUTROPHILS RELATIVE PERCENT (BEAKER) (test naxv=401) 58 % LYMPHOCYTES RELATIVE PERCENT (BEAKER) (test qgva=119) 22 % MONOCYTES RELATIVE PERCENT (BEAKER) (test vdkk=628) 10 % EOSINOPHILS RELATIVE PERCENT (BEAKER) (test jsve=845) 8 % BASOPHILS RELATIVE PERCENT (BEAKER) (test rsxg=755) 1 % NEUTROPHILS ABSOLUTE COUNT (BEAKER) (test tpbs=354) 5.29 K/ L 1.78-5.38 LYMPHOCYTES ABSOLUTE COUNT (BEAKER) (test qozk=885) 2.02 K/ L 1.32-3.57 MONOCYTES ABSOLUTE COUNT (BEAKER) (test qwdi=676) 0.93 K/ L 0.30-0.82 EOSINOPHILS ABSOLUTE COUNT (BEAKER) (test atca=975) 0.70 K/ L 0.04-0.54 BASOPHILS ABSOLUTE COUNT (BEAKER) (test mmhr=081) 0.10 K/ L 0.01-0.08 IMMATURE GRANULOCYTES-RELATIVE PERCENT (BEAKER) (test lcsm=2057) 0 % 0-1 POCT-GLUCOSE [id number] 23:33:00* Test Item Value Reference Range Comments POC-GLUCOSE METER (BEAKER) (test bdxh=5884) 135 mg/dL 70-110 TESTED AT [facility] [address] [facility] [address] URINALYSIS W/ [id number] 19:26:00* Test Item Value Reference Range Comments COLOR (BEAKER) (test stqu=675) [place] CLARITY (BEAKER) (test nnmm=910) Hazy SPECIFIC GRAVITY UA (BEAKER) (test weum=471) 1.010 1.001-1.035 PH UA (BEAKER) (test mnhm=528) 5.0 5.0-8.0 PROTEIN UA (BEAKER) (test qurp=452) 50 mg/dL Negative GLUCOSE UA (BEAKER) (test bfyj=978) Negative Negative KETONES UA (BEAKER) (test fxrn=373) Negative Negative BILIRUBIN UA (BEAKER) (test rryt=586) Negative Negative BLOOD UA (BEAKER) (test hgwm=784) Moderate Negative NITRITE UA (BEAKER) (test zzxw=855) Negative Negative LEUKOCYTE ESTERASE UA (BEAKER) (test nken=710) Large Negative UROBILINOGEN UA (BEAKER) (test omtw=750) 0.2 mg/dL 0.2-1.0 RBC UA (BEAKER) (test qrgt=175) > /HPF WBC UA (BEAKER) (test whvs=821) < /HPF MUCUS (BEAKER) (test cmvs=9391) Rare HYALINE CASTS (BEAKER) (test tcab=025) 19 /LPF SOURCE(BEAKER) (test wbve=7073) Urine, [place] [id number] 16:39:00* Test Item Value Reference Range Comments MAGNESIUM (BEAKER) (test ayse=403) 2.1 mg/dL 1.6-2.6 BASIC METABOLIC [id number] 16:39:00* Test Item Value Reference Range Comments SODIUM (BEAKER) (test sfuv=312) 142 meq/L 136-145 POTASSIUM (BEAKER) (test qofo=043) 4.0 meq/L 3.5-5.1 CHLORIDE (BEAKER) (test eudz=833) 100 meq/L 98-107 CO2 (BEAKER) (test ldib=552) 31 meq/L 22-29 BLOOD UREA NITROGEN (BEAKER) (test jdpp=168) 60 mg/dL 7-21 CREATININE (BEAKER) (test bbsq=839) 1.59 mg/dL 0.57-1.25 GLUCOSE RANDOM (BEAKER) (test hdxp=336) 120 mg/dL 70-105 CALCIUM (BEAKER) (test pzpu=659) 9.2 mg/dL 8.4-10.2 EGFR (BEAKER) (test dtlf=8506) 42 mL/min/1.73 sq m ESTIMATED GFR IS NOT ACCURATE CREATININE CLEARANCE IN PREDICTING GLOMERULAR FILTRATION RATE. ESTIMATED GFR IS NOT APPLICABLE FOR DIALYSIS PATIENTS. POCT-GLUCOSE [id number] 14:13:00* Test Item Value Reference Range Comments POC-GLUCOSE METER (BEAKER) (test jxqq=5553) 137 mg/dL 70-110 TESTED AT [facility] [address] [facility] [address] POCT-GLUCOSE [id number] 08:43:00* Test Item Value Reference Range Comments POC-GLUCOSE METER (BEAKER) (test hexi=2022) 121 mg/dL 70-110 TESTED AT [facility] [address] [facility] [address] [id number] 04:16:00* Test Item Value Reference Range Comments PHOSPHORUS (BEAKER) (test vjau=855) 3.8 mg/dL 2.3-4.7 [id number] 04:16:00* Test Item Value Reference Range Comments MAGNESIUM (BEAKER) (test madr=098) 1.8 mg/dL 1.6-2.6 BASIC METABOLIC [id number] 04:16:00* Test Item Value Reference Range Comments SODIUM (BEAKER) (test mwrp=245) 143 meq/L 136-145 POTASSIUM (BEAKER) (test hjyl=954) 4.0 meq/L 3.5-5.1 CHLORIDE (BEAKER) (test geak=875) 104 meq/L 98-107 CO2 (BEAKER) (test sgov=589) 29 meq/L 22-29 BLOOD UREA NITROGEN (BEAKER) (test vlxj=640) 63 mg/dL 7-21 CREATININE (BEAKER) (test izoh=054) 1.56 mg/dL 0.57-1.25 GLUCOSE RANDOM (BEAKER) (test vlar=604) 110 mg/dL 70-105 CALCIUM (BEAKER) (test bvvd=510) 9.0 mg/dL 8.4-10.2 EGFR (BEAKER) (test gcxt=0044) 43 mL/min/1.73 sq m ESTIMATED GFR IS NOT ACCURATE CREATININE CLEARANCE IN PREDICTING GLOMERULAR FILTRATION RATE. ESTIMATED GFR IS NOT APPLICABLE FOR DIALYSIS PATIENTS. CBC W/PLT COUNT & AUTO [id number] 03:52:00* Test Item Value Reference Range Comments WHITE BLOOD CELL COUNT (BEAKER) (test oxos=020) 9.8 K/ L 3.5-10.5 RED BLOOD CELL COUNT (BEAKER) (test acsu=484) 4.05 M/ L 4.63-6.08 HEMOGLOBIN (BEAKER) (test sccy=074) 11.1 GM/DL 13.7-17.5 HEMATOCRIT (BEAKER) (test awah=279) 33.5 % 40.1-51.0 MEAN CORPUSCULAR VOLUME (BEAKER) (test bsnk=565) 82.7 fL 79.0-92.2 MEAN CORPUSCULAR HEMOGLOBIN (BEAKER) (test xfjh=796) 27.4 pg 25.7-32.2 MEAN CORPUSCULAR HEMOGLOBIN CONC (BEAKER) (test xrpb=043) 33.1 GM/DL 32.3-36.5 RED CELL DISTRIBUTION WIDTH (BEAKER) (test wvsz=601) 15.1 % 11.6-14.4 PLATELET COUNT (BEAKER) (test qcwh=097) 126 K/CU MM 150-450 MEAN PLATELET VOLUME (BEAKER) (test nxzj=290) 10.4 fL 9.4-12.4 NUCLEATED RED BLOOD CELLS (BEAKER) (test zksd=847) 0 /100 WBC 0-0 NEUTROPHILS RELATIVE PERCENT (BEAKER) (test zvlq=016) 64 % LYMPHOCYTES RELATIVE PERCENT (BEAKER) (test iwmv=423) 18 % MONOCYTES RELATIVE PERCENT (BEAKER) (test zsws=311) 11 % EOSINOPHILS RELATIVE PERCENT (BEAKER) (test rywh=790) 6 % BASOPHILS RELATIVE PERCENT (BEAKER) (test gcfq=985) 1 % NEUTROPHILS ABSOLUTE COUNT (BEAKER) (test oxad=944) 6.25 K/ L 1.78-5.38 LYMPHOCYTES ABSOLUTE COUNT (BEAKER) (test cxbc=502) 1.71 K/ L 1.32-3.57 MONOCYTES ABSOLUTE COUNT (BEAKER) (test bipm=119) 1.08 K/ L 0.30-0.82 EOSINOPHILS ABSOLUTE COUNT (BEAKER) (test hvkq=337) 0.61 K/ L 0.04-0.54 BASOPHILS ABSOLUTE COUNT (BEAKER) (test jjxo=010) 0.06 K/ L 0.01-0.08 IMMATURE GRANULOCYTES-RELATIVE PERCENT (BEAKER) (test slxn=4523) 1 % 0-1 POCT-GLUCOSE [id number] 20:11:00* Test Item Value Reference Range Comments POC-GLUCOSE METER (BEAKER) (test nlms=9583) 210 mg/dL 70-110 TESTED AT [place] [id number] [facility] [address] POCT-GLUCOSE [id number] 17:43:00* Test Item Value Reference Range Comments POC-GLUCOSE METER (BEAKER) (test uwty=4966) 155 mg/dL 70-110 TESTED AT [address] [address] URINALYSIS W/ [id number] 12:47:00* Test Item Value Reference Range Comments COLOR (BEAKER) (test sofs=684) [place] CLARITY (BEAKER) (test jaqu=229) Clear SPECIFIC GRAVITY UA (BEAKER) (test tvbk=397) 1.009 1.001-1.035 PH UA (BEAKER) (test nsin=220) 5.0 5.0-8.0 PROTEIN UA (BEAKER) (test pbpx=121) Negative Negative GLUCOSE UA (BEAKER) (test osvh=016) Negative Negative KETONES UA (BEAKER) (test ujsi=651) Negative Negative BILIRUBIN UA (BEAKER) (test mbyu=431) Negative Negative BLOOD UA (BEAKER) (test zewj=409) Negative Negative NITRITE UA (BEAKER) (test dvqs=043) Negative Negative LEUKOCYTE ESTERASE UA (BEAKER) (test gcyq=336) Moderate Negative UROBILINOGEN UA (BEAKER) (test fcpw=449) 0.2 mg/dL 0.2-1.0 RBC UA (BEAKER) (test unvq=789) 1 /HPF WBC UA (BEAKER) (test dixp=573) 8 /HPF BACTERIA (BEAKER) (test ujia=326) Rare MUCUS (BEAKER) (test rcpl=0698) Occasional SQUAMOUS EPITHELIAL (BEAKER) (test lksq=174) 1 /HPF SOURCE(BEAKER) (test nfjs=6284) POCT-GLUCOSE [id number] 12:24:00* Test Item Value Reference Range Comments POC-GLUCOSE METER (BEAKER) (test ktst=9087) 181 mg/dL 70-110 TESTED AT [address] [address] [id number] 12:11:00* Test Item Value Reference Range Comments POTASSIUM (BEAKER) (test xzgj=824) 4.7 meq/L 3.5-5.1 Call Renal if >elevatedPOCT-GLUCOSE [id number] 06:36:00* Test Item Value Reference Range Comments POC-GLUCOSE METER (BEAKER) (test udrf=8712) 154 mg/dL 70-110 TESTED AT [address] [address] CBC W/PLT COUNT & AUTO [id number] 05:33:00* Test Item Value Reference Range Comments WHITE BLOOD CELL COUNT (BEAKER) (test rcaj=005) 12.6 K/ L 3.5-10.5 RED BLOOD CELL COUNT (BEAKER) (test xwjp=277) 4.40 M/ L 4.63-6.08 HEMOGLOBIN (BEAKER) (test sgyj=881) 11.9 GM/DL 13.7-17.5 HEMATOCRIT (BEAKER) (test rplx=420) 37.0 % 40.1-51.0 MEAN CORPUSCULAR VOLUME (BEAKER) (test acrk=890) 84.1 fL 79.0-92.2 MEAN CORPUSCULAR HEMOGLOBIN (BEAKER) (test gyge=457) 27.0 pg 25.7-32.2 MEAN CORPUSCULAR HEMOGLOBIN CONC (BEAKER) (test wxqp=433) 32.2 GM/DL 32.3-36.5 RED CELL DISTRIBUTION WIDTH (BEAKER) (test logf=367) 15.1 % 11.6-14.4 PLATELET COUNT (BEAKER) (test guwr=066) 161 K/CU MM 150-450 MEAN PLATELET VOLUME (BEAKER) (test tnvx=071) 11.4 fL 9.4-12.4 NUCLEATED RED BLOOD CELLS (BEAKER) (test wiro=954) 0 /100 WBC 0-0 NEUTROPHILS RELATIVE PERCENT (BEAKER) (test qzju=065) 81 % LYMPHOCYTES RELATIVE PERCENT (BEAKER) (test lviy=171) 8 % MONOCYTES RELATIVE PERCENT (BEAKER) (test iqqo=970) 8 % EOSINOPHILS RELATIVE PERCENT (BEAKER) (test tkfk=147) 2 % BASOPHILS RELATIVE PERCENT (BEAKER) (test extw=773) 1 % NEUTROPHILS ABSOLUTE COUNT (BEAKER) (test mjew=330) 10.19 K/ L 1.78-5.38 LYMPHOCYTES ABSOLUTE COUNT (BEAKER) (test dzmp=298) 1.01 K/ L 1.32-3.57 MONOCYTES ABSOLUTE COUNT (BEAKER) (test wkcw=105) 0.99 K/ L 0.30-0.82 EOSINOPHILS ABSOLUTE COUNT (BEAKER) (test dtje=439) 0.26 K/ L 0.04-0.54 BASOPHILS ABSOLUTE COUNT (BEAKER) (test yvql=895) 0.06 K/ L 0.01-0.08 IMMATURE GRANULOCYTES-RELATIVE PERCENT (BEAKER) (test yfej=9434) 1 % 0-1 [id number] 05:06:00* Test Item Value Reference Range Comments MAGNESIUM (BEAKER) (test ahmz=359) 2.2 mg/dL 1.6-2.6 BASIC METABOLIC [id number] 05:06:00* Test Item Value Reference Range Comments SODIUM (BEAKER) (test ddml=430) 143 meq/L 136-145 POTASSIUM (BEAKER) (test abxo=588) 5.2 meq/L 3.5-5.1 CHLORIDE (BEAKER) (test luos=143) 105 meq/L 98-107 CO2 (BEAKER) (test qbrm=420) 28 meq/L 22-29 BLOOD UREA NITROGEN (BEAKER) (test cwyc=847) 69 mg/dL 7-21 CREATININE (BEAKER) (test jhpq=006) 1.85 mg/dL 0.57-1.25 GLUCOSE RANDOM (BEAKER) (test cofs=309) 171 mg/dL 70-105 CALCIUM (BEAKER) (test xzqi=064) 9.0 mg/dL 8.4-10.2 EGFR (BEAKER) (test vvpm=3549) 36 mL/min/1.73 sq m ESTIMATED GFR IS NOT ACCURATE CREATININE CLEARANCE IN PREDICTING GLOMERULAR FILTRATION RATE. ESTIMATED GFR IS NOT APPLICABLE FOR DIALYSIS PATIENTS. RAD, CHEST, 1 VIEW, NON [id number] 04:10:00Reason for exam:->s/p temp pacemaker placementShould this be performed at the bedside?->YesFINAL REPORT EXAMINATION: AP PORTABLE CHEST RADIOGRAPH CLINICAL INDICATION: Transvenous cardiac pacer placement IMPRESSION: Compared with 08/06/2017 Tip of the new right jugular cardiac pacing lead projects just supe rior to the diaphragm near the left cardiophrenic sulcus. It is difficult to det ermine with certainty if the lead is within the right atrium or right ventricle. The heart size is normal. Mediastinal contours are stable. Stable opacities are again noted in both lungs, most conspicuous at the lung bases. Atelectasis and/ or scarring favored. No evidence of new lung consolidation or pneumothorax. The left jugular central line is unchanged in position. Signed: Evan Morgan Verified Date/Time: 08/07/2017 04:10:54 Reading Location: [address] Reading Room 18 04:10 AM BASIC METABOLIC [id number] 00:33:00* Test Item Value Reference Range Comments SODIUM (BEAKER) (test pics=214) 141 meq/L 136-145 POTASSIUM (BEAKER) (test pswj=209) 4.8 meq/L 3.5-5.1 CHLORIDE (BEAKER) (test izjp=921) 107 meq/L 98-107 CO2 (BEAKER) (test cgjj=789) 28 meq/L 22-29 BLOOD UREA NITROGEN (BEAKER) (test vusz=782) 68 mg/dL 7-21 CREATININE (BEAKER) (test gbbk=455) 1.79 mg/dL 0.57-1.25 GLUCOSE RANDOM (BEAKER) (test edwl=523) 115 mg/dL 70-105 CALCIUM (BEAKER) (test pjja=234) 8.5 mg/dL 8.4-10.2 EGFR (BEAKER) (test cyqs=7002) 37 mL/min/1.73 sq m ESTIMATED GFR IS NOT ACCURATE CREATININE CLEARANCE IN PREDICTING GLOMERULAR FILTRATION RATE. ESTIMATED GFR IS NOT APPLICABLE FOR DIALYSIS PATIENTS. POCT-GLUCOSE [id number] 00:08:00* Test Item Value Reference Range Comments POC-GLUCOSE METER (BEAKER) (test xkkt=0036) 104 mg/dL 70-110 TESTED AT [facility] [address] [facility] [id number] RAD, CHEST, 1 VIEW, NON [id number] 21:58:00Reason for exam:->line placement FINAL REPORT Chest, 1 view. History: Line placement. Comp arison: 08/05/2017. Impression: There has been interval placement of a left IJ coursing central venous catheter with tip superimposed over the junction of the SVC and left brachiocephalic vein. The trachea is midline. Lungs are symmetrical ly expanded without evidence of focal consolidation, pneumothorax, or significan t pleural effusion. The cardiomediastinal silhouette is stable in appearance. No acute osseous abnormalities are identified. Signed: Nishant Brush Date/Time: 08/06/2017 21:58:10 Reading Location: [facility] B1 [id number] Consult Read ing Room C METABOLIC [id number] 18:06:00* Test Item Value Reference Range Comments SODIUM (BEAKER) (test wwom=244) 139 meq/L 136-145 POTASSIUM (BEAKER) (test ioni=250) 5.6 meq/L 3.5-5.1 CHLORIDE (BEAKER) (test vjpj=907) 107 meq/L 98-107 CO2 (BEAKER) (test aevs=093) 25 meq/L 22-29 BLOOD UREA NITROGEN (BEAKER) (test tlxg=850) 70 mg/dL 7-21 CREATININE (BEAKER) (test rgyr=134) 2.00 mg/dL 0.57-1.25 GLUCOSE RANDOM (BEAKER) (test gryr=725) 176 mg/dL 70-105 CALCIUM (BEAKER) (test dacs=411) 8.6 mg/dL 8.4-10.2 EGFR (BEAKER) (test talr=8670) 33 mL/min/1.73 sq m ESTIMATED GFR IS NOT ACCURATE CREATININE CLEARANCE IN PREDICTING GLOMERULAR FILTRATION RATE. ESTIMATED GFR IS NOT APPLICABLE FOR DIALYSIS PATIENTS. POCT-GLUCOSE [id number] 17:25:00* Test Item Value Reference Range Comments POC-GLUCOSE METER (BEAKER) (test savo=7496) 193 mg/dL 70-110 TESTED AT [facility] [address] [facility] [address] BASIC METABOLIC [id number] 13:43:00* Test Item Value Reference Range Comments SODIUM (BEAKER) (test rmpz=244) 139 meq/L 136-145 POTASSIUM (BEAKER) (test imtx=423) 6.3 meq/L 3.5-5.1 CHLORIDE (BEAKER) (test bpzu=875) 106 meq/L 98-107 CO2 (BEAKER) (test wgwv=911) 25 meq/L 22-29 BLOOD UREA NITROGEN (BEAKER) (test xddj=599) 73 mg/dL 7-21 CREATININE (BEAKER) (test vkfx=128) 2.00 mg/dL 0.57-1.25 GLUCOSE RANDOM (BEAKER) (test tzno=794) 133 mg/dL 70-105 CALCIUM (BEAKER) (test yytz=666) 9.0 mg/dL 8.4-10.2 EGFR (BEAKER) (test nibq=2843) 33 mL/min/1.73 sq m ESTIMATED GFR IS NOT ACCURATE CREATININE CLEARANCE IN PREDICTING GLOMERULAR FILTRATION RATE. ESTIMATED GFR IS NOT APPLICABLE FOR DIALYSIS PATIENTS. POCT-GLUCOSE [id number] 13:04:00* Test Item Value Reference Range Comments POC-GLUCOSE METER (BEAKER) (test blcu=4243) 153 mg/dL 70-110 TESTED AT [facility] [address] [facility] [address] POCT-GLUCOSE [id number] 08:05:00* Test Item Value Reference Range Comments POC-GLUCOSE METER (BEAKER) (test srmf=1793) 120 mg/dL 70-110 TESTED AT [facility] [address] [facility] [address] BASIC METABOLIC [id number] 05:24:00* Test Item Value Reference Range Comments SODIUM (BEAKER) (test uzyv=708) 140 meq/L 136-145 POTASSIUM (BEAKER) (test coqn=347) 6.0 meq/L 3.5-5.1 CHLORIDE (BEAKER) (test wpex=801) 106 meq/L 98-107 CO2 (BEAKER) (test qouc=756) 25 meq/L 22-29 BLOOD UREA NITROGEN (BEAKER) (test wxai=915) 78 mg/dL 7-21 CREATININE (BEAKER) (test etjg=624) 2.03 mg/dL 0.57-1.25 GLUCOSE RANDOM (BEAKER) (test xvpi=953) 92 mg/dL 70-105 CALCIUM (BEAKER) (test fsvt=400) 8.9 mg/dL 8.4-10.2 EGFR (BEAKER) (test bltg=8546) 32 mL/min/1.73 sq m ESTIMATED GFR IS NOT ACCURATE CREATININE CLEARANCE IN PREDICTING GLOMERULAR FILTRATION RATE. ESTIMATED GFR IS NOT APPLICABLE FOR DIALYSIS PATIENTS. [id number] 05:20:00* Test Item Value Reference Range Comments MAGNESIUM (BEAKER) (test kvhl=877) 2.5 mg/dL 1.6-2.6 CBC W/PLT COUNT & AUTO [id number] 04:44:00* Test Item Value Reference Range Comments WHITE BLOOD CELL COUNT (BEAKER) (test bmou=412) 9.3 K/ L 3.5-10.5 RED BLOOD CELL COUNT (BEAKER) (test nyjz=861) 4.11 M/ L 4.63-6.08 HEMOGLOBIN (BEAKER) (test oxdp=023) 11.1 GM/DL 13.7-17.5 HEMATOCRIT (BEAKER) (test nzrn=087) 34.2 % 40.1-51.0 MEAN CORPUSCULAR VOLUME (BEAKER) (test qwry=730) 83.2 fL 79.0-92.2 MEAN CORPUSCULAR HEMOGLOBIN (BEAKER) (test loru=102) 27.0 pg 25.7-32.2 MEAN CORPUSCULAR HEMOGLOBIN CONC (BEAKER) (test hamg=948) 32.5 GM/DL 32.3-36.5 RED CELL DISTRIBUTION WIDTH (BEAKER) (test gpfu=018) 15.5 % 11.6-14.4 PLATELET COUNT (BEAKER) (test mwxu=107) 139 K/CU MM 150-450 MEAN PLATELET VOLUME (BEAKER) (test gaet=575) 11.7 fL 9.4-12.4 NUCLEATED RED BLOOD CELLS (BEAKER) (test dnai=471) 0 /100 WBC 0-0 NEUTROPHILS RELATIVE PERCENT (BEAKER) (test szpr=386) 66 % LYMPHOCYTES RELATIVE PERCENT (BEAKER) (test xzgv=455) 19 % MONOCYTES RELATIVE PERCENT (BEAKER) (test fekr=040) 9 % EOSINOPHILS RELATIVE PERCENT (BEAKER) (test riae=386) 4 % BASOPHILS RELATIVE PERCENT (BEAKER) (test jnyr=298) 1 % NEUTROPHILS ABSOLUTE COUNT (BEAKER) (test gqij=545) 6.12 K/ L 1.78-5.38 LYMPHOCYTES ABSOLUTE COUNT (BEAKER) (test tryb=277) 1.77 K/ L 1.32-3.57 MONOCYTES ABSOLUTE COUNT (BEAKER) (test mvmk=610) 0.87 K/ L 0.30-0.82 EOSINOPHILS ABSOLUTE COUNT (BEAKER) (test eeed=873) 0.40 K/ L 0.04-0.54 BASOPHILS ABSOLUTE COUNT (BEAKER) (test rbpz=431) 0.06 K/ L 0.01-0.08 IMMATURE GRANULOCYTES-RELATIVE PERCENT (BEAKER) (test kzqx=2898) 1 % 0-1 POCT-GLUCOSE [id number] 00:56:00* Test Item Value Reference Range Comments POC-GLUCOSE METER (BEAKER) (test mcjc=9595) 113 mg/dL 70-110 TESTED AT [facility] [address] [facility] [address] TSH/FREE T4 IF [id number] 21:58:00* Test Item Value Reference Range Comments THYROID STIMULATING HORMONE (BEAKER) (test bume=641) 1.99 uIU/mL 0.35-4.94 LACTIC ACID, VENOUS, WHOLE [id number] 21:34:00* Test Item Value Reference Range Comments LACTATE BLOOD VENOUS (2) (BEAKER) (test dajm=8708) 1.1 mmol/L 0.5-2.2 Effective 10/23/2015: Units/Reference Range ChangeNew: 0.5-2.2 mmol/L Previous: 5 -20 mg/dLPOCT-GLUCOSE [id number] 21:16:00* Test Item Value Reference Range Comments POC-GLUCOSE METER (BEAKER) (test qtqt=8484) 94 mg/dL 70-110 TESTED AT [facility] [address] [facility] [address] [id number] 20:24:00* Test Item Value Reference Range Comments POTASSIUM (BEAKER) (test pblf=559) 6.2 meq/L 3.5-5.1 LACTIC ACID, VENOUS, WHOLE [id number] 20:22:00* Test Item Value Reference Range Comments LACTATE BLOOD VENOUS (2) (BEAKER) (test xmgi=5304) 1.4 mmol/L 0.5-2.2 Specimen moderately hemolyzed Effective 10/23/2015: Units/Reference Range ChangeNew: 0.5-2.2 mmol/L Previous: 5 -20 mg/[id number] 20:19:00* Test Item Value Reference Range Comments GLUCOSE RANDOM (BEAKER) (test mtuz=044) 86 mg/dL 70-105 RAD, CHEST, 1 VIEW, NON [id number] 16:14:00Reason for exam:-> BRADYCARDIAShould this be performed at the bedside?->YesFINAL REPORT Chest one view compared to April 09, 2017 Discussion: Heart, lungs, bones, soft tissues unremarkable. No effusion or pneumothorax. Signed: Mendy Zepeda Verified Date/Time: 08/05/2017 16:14:20 Reading Location: [address] Consult Reading Room C METABOLIC [id number] 15:43:00* Test Item Value Reference Range Comments SODIUM (BEAKER) (test mliz=373) 135 meq/L 136-145 POTASSIUM (BEAKER) (test aqjb=743) 6.6 meq/L 3.5-5.1 Specimen slightly hemolyzed CHLORIDE (BEAKER) (test ythm=281) 100 meq/L 98-107 CO2 (BEAKER) (test luvc=924) 23 meq/L 22-29 BLOOD UREA NITROGEN (BEAKER) (test bsgd=634) 84 mg/dL 7-21 CREATININE (BEAKER) (test arye=079) 2.47 mg/dL 0.57-1.25 Specimen slightly hemolyzed GLUCOSE RANDOM (BEAKER) (test vmwk=096) 188 mg/dL 70-105 CALCIUM (BEAKER) (test bhjr=118) 9.5 mg/dL 8.4-10.2 EGFR (BEAKER) (test jfry=6821) 26 mL/min/1.73 sq m ESTIMATED GFR IS NOT ACCURATE CREATININE CLEARANCE IN PREDICTING GLOMERULAR FILTRATION RATE. ESTIMATED GFR IS NOT APPLICABLE FOR DIALYSIS PATIENTS. B-TYPE NATRIURETIC FACTOR (BNP)2017-08-05 15:42:00* Test Item Value Reference Range Comments B-TYPE NATRIURETIC PEPTIDE (BEAKER) (test szfw=456) 40 pg/mL 0-100 CREATINE KINASE (CK), TOTAL AND [id number] 15:41:00* Test Item Value Reference Range Comments CREATINE KINASE TOTAL (BEAKER) (test vqxc=885) 61 U/L 29-200 CREATINE KINASE-MB (BEAKER) (test ibzr=625) 3.7 ng/mL 0.0-6.6 CREATINE KINASE-MB INDEX (BEAKER) (test snpr=906) 6.1 % CK-MB Reference Range:<6.7 Normal6.7-10.0 Borderline>10.0 Abnormal TROPONIN [id number] 15:41:00* Test Item Value Reference Range Comments TROPONIN I (BEAKER) (test twek=740) 0.02 ng/mL 0.00-0.03 Troponin I (TnI) levels must be interpreted in the context of the presenting sym ptoms and the clinical findings. Elevated TnI levels indicate myocardial damage, but are not specific for ischemic heart disease. Elevated TnI levels are seen in patients with other cardiac conditions (including myocarditis and congestive h eart failure), and slight TnI elevations occur in patients with other conditions , including sepsis, renal failure, acidosis, acute neurological disease, and per sistent tachyarrhythmia.CBC W/PLT COUNT & AUTO [id number] 15:05:00* Test Item Value Reference Range Comments WHITE BLOOD CELL COUNT (BEAKER) (test tvqx=914) 8.9 K/ L 3.5-10.5 RED BLOOD CELL COUNT (BEAKER) (test gtji=674) 4.33 M/ L 4.63-6.08 HEMOGLOBIN (BEAKER) (test yzkv=602) 11.8 GM/DL 13.7-17.5 HEMATOCRIT (BEAKER) (test zuwy=538) 36.1 % 40.1-51.0 MEAN CORPUSCULAR VOLUME (BEAKER) (test nqjl=913) 83.4 fL 79.0-92.2 MEAN CORPUSCULAR HEMOGLOBIN (BEAKER) (test wwwn=487) 27.3 pg 25.7-32.2 MEAN CORPUSCULAR HEMOGLOBIN CONC (BEAKER) (test wkny=072) 32.7 GM/DL 32.3-36.5 RED CELL DISTRIBUTION WIDTH (BEAKER) (test aprj=802) 15.3 % 11.6-14.4 PLATELET COUNT (BEAKER) (test qajt=023) 151 K/CU MM 150-450 MEAN PLATELET VOLUME (BEAKER) (test hvbc=886) 11.4 fL 9.4-12.4 NUCLEATED RED BLOOD CELLS (BEAKER) (test stvc=711) 0 /100 WBC 0-0 NEUTROPHILS RELATIVE PERCENT (BEAKER) (test fobk=994) 65 % LYMPHOCYTES RELATIVE PERCENT (BEAKER) (test irsr=741) 20 % MONOCYTES RELATIVE PERCENT (BEAKER) (test zkfu=285) 9 % EOSINOPHILS RELATIVE PERCENT (BEAKER) (test gilr=060) 5 % BASOPHILS RELATIVE PERCENT (BEAKER) (test ykkl=536) 1 % NEUTROPHILS ABSOLUTE COUNT (BEAKER) (test rsul=798) 5.79 K/ L 1.78-5.38 LYMPHOCYTES ABSOLUTE COUNT (BEAKER) (test qkjv=529) 1.80 K/ L 1.32-3.57 MONOCYTES ABSOLUTE COUNT (BEAKER) (test cqzk=255) 0.75 K/ L 0.30-0.82 EOSINOPHILS ABSOLUTE COUNT (BEAKER) (test emyp=151) 0.43 K/ L 0.04-0.54 BASOPHILS ABSOLUTE COUNT (BEAKER) (test gzij=288) 0.06 K/ L 0.01-0.08 IMMATURE GRANULOCYTES-RELATIVE PERCENT (BEAKER) (test gfsi=1964) 1 % 0-1 POCT-GLUCOSE [id number] 08:22:00* Test Item Value Reference Range Comments POC-GLUCOSE METER (BEAKER) (test qvrc=4458) 99 mg/dL 70-110 TESTED AT [address] [address] BASIC METABOLIC [id number] 05:27:00* Test Item Value Reference Range Comments SODIUM (BEAKER) (test pyci=868) 144 meq/L 136-145 POTASSIUM (BEAKER) (test vugj=265) 4.1 meq/L 3.5-5.1 CHLORIDE (BEAKER) (test yysa=112) 106 meq/L 98-107 CO2 (BEAKER) (test rkyg=296) 31 meq/L 22-29 BLOOD UREA NITROGEN (BEAKER) (test qepf=966) 23 mg/dL 7-21 CREATININE (BEAKER) (test tkth=351) 1.44 mg/dL 0.57-1.25 GLUCOSE RANDOM (BEAKER) (test cxag=866) 99 mg/dL 70-105 CALCIUM (BEAKER) (test rdbv=537) 9.2 mg/dL 8.4-10.2 EGFR (BEAKER) (test hgkg=5482) 48 mL/min/1.73 sq m ESTIMATED GFR IS NOT ACCURATE CREATININE CLEARANCE IN PREDICTING GLOMERULAR FILTRATION RATE. ESTIMATED GFR IS NOT APPLICABLE FOR DIALYSIS PATIENTS. POCT-GLUCOSE [id number] 21:43:00* Test Item Value Reference Range Comments POC-GLUCOSE METER (BEAKER) (test xvpo=7911) 131 mg/dL 70-110 TESTED AT [address] [address] POCT-GLUCOSE [id number] 17:31:00* Test Item Value Reference Range Comments POC-GLUCOSE METER (BEAKER) (test ndvm=5994) 91 mg/dL 70-110 TESTED AT [address] [address] POCT-GLUCOSE [id number] 12:41:00* Test Item Value Reference Range Comments POC-GLUCOSE METER (BEAKER) (test vubl=9524) 171 mg/dL 70-110 TESTED AT [address] [address] [id number] 10:42:00* Test Item Value Reference Range Comments MAGNESIUM (BEAKER) (test hbdr=980) 1.9 mg/dL 1.6-2.6 POCT-GLUCOSE [id number] 07:35:00* Test Item Value Reference Range Comments POC-GLUCOSE METER (BEAKER) (test oxlp=1948) 120 mg/dL 70-110 TESTED AT [address] [address] BASIC METABOLIC [id number] 05:36:00* Test Item Value Reference Range Comments SODIUM (BEAKER) (test geog=770) 146 meq/L 136-145 POTASSIUM (BEAKER) (test zzkc=522) 3.8 meq/L 3.5-5.1 CHLORIDE (BEAKER) (test rnhi=486) 109 meq/L 98-107 CO2 (BEAKER) (test gmat=679) 28 meq/L 22-29 BLOOD UREA NITROGEN (BEAKER) (test xnuz=882) 21 mg/dL 7-21 CREATININE (BEAKER) (test orea=452) 1.21 mg/dL 0.57-1.25 GLUCOSE RANDOM (BEAKER) (test bhys=102) 127 mg/dL 70-105 CALCIUM (BEAKER) (test mzch=098) 8.4 mg/dL 8.4-10.2 EGFR (BEAKER) (test xwvr=8413) 58 mL/min/1.73 sq m ESTIMATED GFR IS NOT ACCURATE CREATININE CLEARANCE IN PREDICTING GLOMERULAR FILTRATION RATE. ESTIMATED GFR IS NOT APPLICABLE FOR DIALYSIS PATIENTS. POCT-GLUCOSE [id number] 21:02:00* Test Item Value Reference Range Comments POC-GLUCOSE METER (BEAKER) (test dwju=4321) 162 mg/dL 70-110 TESTED AT [address] [address] POCT-GLUCOSE [id number] 17:08:00* Test Item Value Reference Range Comments POC-GLUCOSE METER (BEAKER) (test hfld=6034) 131 mg/dL 70-110 TESTED AT [place] [address] [id number] 12:06:00* Test Item Value Reference Range Comments MAGNESIUM (BEAKER) (test lffz=343) 1.8 mg/dL 1.6-2.6 BASIC METABOLIC [id number] 12:06:00* Test Item Value Reference Range Comments SODIUM (BEAKER) (test vmki=617) 145 meq/L 136-145 POTASSIUM (BEAKER) (test dbks=005) 3.6 meq/L 3.5-5.1 CHLORIDE (BEAKER) (test anqo=396) 108 meq/L 98-107 CO2 (BEAKER) (test plvd=196) 31 meq/L 22-29 BLOOD UREA NITROGEN (BEAKER) (test glqp=188) 21 mg/dL 7-21 CREATININE (BEAKER) (test jnpi=259) 1.42 mg/dL 0.57-1.25 GLUCOSE RANDOM (BEAKER) (test xtvs=218) 110 mg/dL 70-105 CALCIUM (BEAKER) (test codd=290) 8.5 mg/dL 8.4-10.2 EGFR (BEAKER) (test yubg=3209) 48 mL/min/1.73 sq m ESTIMATED GFR IS NOT ACCURATE CREATININE CLEARANCE IN PREDICTING GLOMERULAR FILTRATION RATE. ESTIMATED GFR IS NOT APPLICABLE FOR DIALYSIS PATIENTS. POCT-GLUCOSE [id number] 12:00:00* Test Item Value Reference Range Comments POC-GLUCOSE METER (BEAKER) (test zift=4458) 174 mg/dL 70-110 TESTED AT [address] [address] POCT-GLUCOSE [id number] 08:09:00* Test Item Value Reference Range Comments POC-GLUCOSE METER (BEAKER) (test thnn=3765) 107 mg/dL 70-110 TESTED AT [address] [address] [id number] 06:20:00* Test Item Value Reference Range Comments MAGNESIUM (BEAKER) (test ziel=854) 1.9 mg/dL 1.6-2.6 BASIC METABOLIC [id number] 06:20:00* Test Item Value Reference Range Comments SODIUM (BEAKER) (test ttqm=199) 142 meq/L 136-145 POTASSIUM (BEAKER) (test xyzv=874) 3.7 meq/L 3.5-5.1 CHLORIDE (BEAKER) (test pjaa=289) 104 meq/L 98-107 CO2 (BEAKER) (test afrx=720) 31 meq/L 22-29 BLOOD UREA NITROGEN (BEAKER) (test vksz=057) 18 mg/dL 7-21 CREATININE (BEAKER) (test kuer=329) 1.17 mg/dL 0.57-1.25 GLUCOSE RANDOM (BEAKER) (test kfdk=770) 107 mg/dL 70-105 CALCIUM (BEAKER) (test rhzs=022) 8.6 mg/dL 8.4-10.2 EGFR (BEAKER) (test uqub=5973) 60 mL/min/1.73 sq m ESTIMATED GFR IS NOT ACCURATE CREATININE CLEARANCE IN PREDICTING GLOMERULAR FILTRATION RATE. ESTIMATED GFR IS NOT APPLICABLE FOR DIALYSIS PATIENTS. POCT-GLUCOSE [id number] 21:33:00* Test Item Value Reference Range Comments POC-GLUCOSE METER (BEAKER) (test duai=2348) 175 mg/dL 70-110 TESTED AT [place] [id number] POCT-GLUCOSE [id number] 18:42:00* Test Item Value Reference Range Comments POC-GLUCOSE METER (BEAKER) (test ynla=6387) 200 mg/dL 70-110 TESTED AT [address] [address] [id number] 14:56:00* Test Item Value Reference Range Comments POTASSIUM (BEAKER) (test ulbs=102) 3.6 meq/L 3.5-5.1 POCT-GLUCOSE [id number] 12:28:00* Test Item Value Reference Range Comments POC-GLUCOSE METER (BEAKER) (test jnqo=9268) 165 mg/dL 70-110 TESTED AT [address] [address] POCT-GLUCOSE [id number] 08:14:00* Test Item Value Reference Range Comments POC-GLUCOSE METER (BEAKER) (test phmc=7519) 107 mg/dL 70-110 TESTED AT [address] [address] [id number] 07:41:00* Test Item Value Reference Range Comments MAGNESIUM (BEAKER) (test sqgs=983) 1.8 mg/dL 1.6-2.6 BASIC METABOLIC [id number] 07:41:00* Test Item Value Reference Range Comments SODIUM (BEAKER) (test qlef=948) 140 meq/L 136-145 POTASSIUM (BEAKER) (test xvjk=193) 3.3 meq/L 3.5-5.1 CHLORIDE (BEAKER) (test dhuo=400) 100 meq/L 98-107 CO2 (BEAKER) (test edwg=618) 30 meq/L 22-29 BLOOD UREA NITROGEN (BEAKER) (test jhhz=805) 26 mg/dL 7-21 CREATININE (BEAKER) (test mllw=529) 1.31 mg/dL 0.57-1.25 GLUCOSE RANDOM (BEAKER) (test qmss=051) 106 mg/dL 70-105 CALCIUM (BEAKER) (test xaxp=167) 9.6 mg/dL 8.4-10.2 EGFR (BEAKER) (test yfda=9337) 53 mL/min/1.73 sq m ESTIMATED GFR IS NOT ACCURATE CREATININE CLEARANCE IN PREDICTING GLOMERULAR FILTRATION RATE. ESTIMATED GFR IS NOT APPLICABLE FOR DIALYSIS PATIENTS. POCT-GLUCOSE [id number] 17:09:00* Test Item Value Reference Range Comments POC-GLUCOSE METER (BEAKER) (test fkei=9734) 155 mg/dL 70-110 TESTED AT [place] [address] POCT-GLUCOSE [id number] 12:38:00* Test Item Value Reference Range Comments POC-GLUCOSE METER (BEAKER) (test oehe=4907) 142 mg/dL 70-110 TESTED AT [place] [address] POCT-GLUCOSE [id number] 08:12:00* Test Item Value Reference Range Comments POC-GLUCOSE METER (BEAKER) (test qpns=6792) 100 mg/dL 70-110 TESTED AT [address] [address] BASIC METABOLIC [id number] 07:51:00* Test Item Value Reference Range Comments SODIUM (BEAKER) (test eewn=768) 142 meq/L 136-145 POTASSIUM (BEAKER) (test ftbg=886) 3.2 meq/L 3.5-5.1 CHLORIDE (BEAKER) (test cdnd=492) 104 meq/L 98-107 CO2 (BEAKER) (test yokw=045) 27 meq/L 22-29 BLOOD UREA NITROGEN (BEAKER) (test nigc=050) 27 mg/dL 7-21 CREATININE (BEAKER) (test rtcw=325) 1.40 mg/dL 0.57-1.25 GLUCOSE RANDOM (BEAKER) (test zdeo=594) 93 mg/dL 70-105 CALCIUM (BEAKER) (test awhw=388) 8.9 mg/dL 8.4-10.2 EGFR (BEAKER) (test nhcf=0866) 49 mL/min/1.73 sq m ESTIMATED GFR IS NOT ACCURATE CREATININE CLEARANCE IN PREDICTING GLOMERULAR FILTRATION RATE. ESTIMATED GFR IS NOT APPLICABLE FOR DIALYSIS PATIENTS. B-TYPE NATRIURETIC FACTOR (BNP)2017-04-10 07:30:00* Test Item Value Reference Range Comments B-TYPE NATRIURETIC PEPTIDE (BEAKER) (test yrfo=680) 644 pg/mL 0-100 CBC W/PLT COUNT & AUTO [id number] 06:48:00* Test Item Value Reference Range Comments WHITE BLOOD CELL COUNT (BEAKER) (test fdmp=915) 9.6 K/ L 3.5-10.5 RED BLOOD CELL COUNT (BEAKER) (test jgck=348) 4.17 M/ L 4.63-6.08 HEMOGLOBIN (BEAKER) (test zixx=587) 10.9 GM/DL 13.7-17.5 HEMATOCRIT (BEAKER) (test vqrq=880) 34.2 % 40.1-51.0 MEAN CORPUSCULAR VOLUME (BEAKER) (test ncaf=809) 82.0 fL 79.0-92.2 MEAN CORPUSCULAR HEMOGLOBIN (BEAKER) (test wccp=515) 26.1 pg 25.7-32.2 MEAN CORPUSCULAR HEMOGLOBIN CONC (BEAKER) (test oufv=143) 31.9 GM/DL 32.3-36.5 RED CELL DISTRIBUTION WIDTH (BEAKER) (test sfpg=159) 14.2 % 11.6-14.4 PLATELET COUNT (BEAKER) (test nejk=693) 240 K/CU MM 150-450 MEAN PLATELET VOLUME (BEAKER) (test azar=983) 11.5 fL 9.4-12.4 NUCLEATED RED BLOOD CELLS (BEAKER) (test xpgx=786) 0 /100 WBC 0-0 NEUTROPHILS RELATIVE PERCENT (BEAKER) (test brcd=288) 72 % LYMPHOCYTES RELATIVE PERCENT (BEAKER) (test enwr=703) 14 % MONOCYTES RELATIVE PERCENT (BEAKER) (test qhmg=036) 9 % EOSINOPHILS RELATIVE PERCENT (BEAKER) (test jnsn=548) 4 % BASOPHILS RELATIVE PERCENT (BEAKER) (test mpvd=643) 1 % NEUTROPHILS ABSOLUTE COUNT (BEAKER) (test tqpx=176) 6.88 K/ L 1.78-5.38 LYMPHOCYTES ABSOLUTE COUNT (BEAKER) (test fijv=727) 1.30 K/ L 1.32-3.57 MONOCYTES ABSOLUTE COUNT (BEAKER) (test hbqb=235) 0.88 K/ L 0.30-0.82 EOSINOPHILS ABSOLUTE COUNT (BEAKER) (test njtr=481) 0.39 K/ L 0.04-0.54 BASOPHILS ABSOLUTE COUNT (BEAKER) (test trwm=340) 0.11 K/ L 0.01-0.08 IMMATURE GRANULOCYTES-RELATIVE PERCENT (BEAKER) (test tbua=1476) 0 % 0-1 POCT-GLUCOSE [id number] 21:03:00* Test Item Value Reference Range Comments POC-GLUCOSE METER (BEAKER) (test xlwp=8688) 197 mg/dL 70-110 TESTED AT [facility] [address] [facility] [address] POCT-GLUCOSE [id number] 17:47:00* Test Item Value Reference Range Comments POC-GLUCOSE METER (BEAKER) (test pppg=7881) 121 mg/dL 70-110 TESTED AT [facility] [address] [facility] [address] RAD, CHEST, 2 [id number] 13:52:00Reason for exam:->dyspneaShould this be performed at the bedside?->YesFINAL REPORT TECHNIQUE: Frontal and lateral chest radiographs dated 04/09/2017. CLINICAL HISTORY: Dyspnea COMPARISON STUDY: Chest radiograph dated 10/24/2006 FINDINGS: There is a trace left pleural effusion with a small amount of associated compressive atelectasis. Right lung is clear. No pneumothorax. Cardiomediastinal silhouette is normal in size. No pulmonary edema. Degenerative changes are seen in the spine. Bones are osteopenic. No fracture. IMPRESSION: Trace left pleural effusion with a small amount of associated compressive atelectasis. Signed: J Luis Easley Verified Date/Time: 04/09/2017 13:52:02 Reading Location: [facility] Radiology Reading Room -GLUCOSE [id number] 12:37:00* Test Item Value Reference Range Comments POC-GLUCOSE METER (BEAKER) (test anab=0873) 162 mg/dL 70-110 TESTED AT [facility] [address] [facility] [address] TSH/FREE T4 IF [id number] 10:40:00* Test Item Value Reference Range Comments THYROID STIMULATING HORMONE (BEAKER) (test ikuw=425) 3.10 uIU/mL 0.35-4.94 B-TYPE NATRIURETIC FACTOR (BNP)2017-04-09 09:26:00* Test Item Value Reference Range Comments B-TYPE NATRIURETIC PEPTIDE (BEAKER) (test ougx=458) 1127 pg/mL 0-100 BASIC METABOLIC [id number] 09:18:00* Test Item Value Reference Range Comments SODIUM (BEAKER) (test qpvd=573) 142 meq/L 136-145 POTASSIUM (BEAKER) (test dwnv=406) 4.1 meq/L 3.5-5.1 CHLORIDE (BEAKER) (test nrwz=512) 108 meq/L 98-107 CO2 (BEAKER) (test ojbf=748) 26 meq/L 22-29 BLOOD UREA NITROGEN (BEAKER) (test gham=729) 24 mg/dL 7-21 CREATININE (BEAKER) (test vwgc=428) 1.18 mg/dL 0.57-1.25 GLUCOSE RANDOM (BEAKER) (test bnkf=187) 96 mg/dL 70-105 CALCIUM (BEAKER) (test udgg=896) 9.1 mg/dL 8.4-10.2 EGFR (BEAKER) (test iyvk=5653) 60 mL/min/1.73 sq m ESTIMATED GFR IS NOT ACCURATE CREATININE CLEARANCE IN PREDICTING GLOMERULAR FILTRATION RATE. ESTIMATED GFR IS NOT APPLICABLE FOR DIALYSIS PATIENTS. CBC W/PLT COUNT & AUTO [id number] 09:07:00* Test Item Value Reference Range Comments WHITE BLOOD CELL COUNT (BEAKER) (test wadg=250) 9.9 K/ L 3.5-10.5 RED BLOOD CELL COUNT (BEAKER) (test hokk=456) 4.30 M/ L 4.63-6.08 HEMOGLOBIN (BEAKER) (test teac=737) 11.5 GM/DL 13.7-17.5 HEMATOCRIT (BEAKER) (test wdfj=351) 35.8 % 40.1-51.0 MEAN CORPUSCULAR VOLUME (BEAKER) (test lbsw=160) 83.3 fL 79.0-92.2 MEAN CORPUSCULAR HEMOGLOBIN (BEAKER) (test zofb=836) 26.7 pg 25.7-32.2 MEAN CORPUSCULAR HEMOGLOBIN CONC (BEAKER) (test cgch=464) 32.1 GM/DL 32.3-36.5 RED CELL DISTRIBUTION WIDTH (BEAKER) (test vyvq=681) 14.6 % 11.6-14.4 PLATELET COUNT (BEAKER) (test scty=082) 253 K/CU MM 150-450 MEAN PLATELET VOLUME (BEAKER) (test usal=605) 11.5 fL 9.4-12.4 NUCLEATED RED BLOOD CELLS (BEAKER) (test ilsw=125) 0 /100 WBC 0-0 NEUTROPHILS RELATIVE PERCENT (BEAKER) (test dqqw=486) 71 % LYMPHOCYTES RELATIVE PERCENT (BEAKER) (test vnth=344) 15 % MONOCYTES RELATIVE PERCENT (BEAKER) (test tsmu=812) 9 % EOSINOPHILS RELATIVE PERCENT (BEAKER) (test giig=513) 4 % BASOPHILS RELATIVE PERCENT (BEAKER) (test csbq=472) 1 % NEUTROPHILS ABSOLUTE COUNT (BEAKER) (test xqhj=433) 7.04 K/ L 1.78-5.38 LYMPHOCYTES ABSOLUTE COUNT (BEAKER) (test zign=156) 1.43 K/ L 1.32-3.57 MONOCYTES ABSOLUTE COUNT (BEAKER) (test ouwv=143) 0.91 K/ L 0.30-0.82 EOSINOPHILS ABSOLUTE COUNT (BEAKER) (test eotg=130) 0.37 K/ L 0.04-0.54 BASOPHILS ABSOLUTE COUNT (BEAKER) (test yzjn=364) 0.09 K/ L 0.01-0.08 IMMATURE GRANULOCYTES-RELATIVE PERCENT (BEAKER) (test movt=6003) 0 % 0-1 POCT-GLUCOSE [id number] 08:07:00* Test Item Value Reference Range Comments POC-GLUCOSE METER (BEAKER) (test siio=2545) 98 mg/dL 70-110 TESTED AT [facility] [address] [facility] [address] POCT-GLUCOSE [id number] 21:47:00* Test Item Value Reference Range Comments POC-GLUCOSE METER (BEAKER) (test vdnw=9144) 196 mg/dL 70-110 TESTED AT [facility] [address] [facility] [address] POCT-GLUCOSE [id number] 17:35:00* Test Item Value Reference Range Comments POC-GLUCOSE METER (BEAKER) (test xuvv=2347) 141 mg/dL 70-110 TESTED AT [facility] [address] [facility] [address] TROPONIN [id number] 14:00:00* Test Item Value Reference Range Comments TROPONIN I (BEAKER) (test orma=315) 0.04 ng/mL 0.00-0.03 Troponin I (TnI) levels must be interpreted in the context of the presenting sym ptoms and the clinical findings. Elevated TnI levels indicate myocardial damage, but are not specific for ischemic heart disease. Elevated TnI levels are seen in patients with other cardiac conditions (including myocarditis and congestive h eart failure), and slight TnI elevations occur in patients with other conditions , including sepsis, renal failure, acidosis, acute neurological disease, and per sistent tachyarrhythmia.B-TYPE NATRIURETIC FACTOR (BNP)2017-04-08 13:54:00* Test Item Value Reference Range Comments B-TYPE NATRIURETIC PEPTIDE (BEAKER) (test greg=303) 1622 pg/mL 0-100 POCT-GLUCOSE [id number] 12:09:00* Test Item Value Reference Range Comments POC-GLUCOSE METER (BEAKER) (test fqgz=4545) 171 mg/dL 70-110 TESTED AT [facility] [address] [facility] [address] BASIC METABOLIC [id number] 05:57:00* Test Item Value Reference Range Comments SODIUM (BEAKER) (test bjgd=282) 142 meq/L 136-145 POTASSIUM (BEAKER) (test yoct=290) 4.0 meq/L 3.5-5.1 CHLORIDE (BEAKER) (test duev=373) 108 meq/L 98-107 CO2 (BEAKER) (test aamj=075) 24 meq/L 22-29 BLOOD UREA NITROGEN (BEAKER) (test vmpr=131) 21 mg/dL 7-21 CREATININE (BEAKER) (test ujwd=494) 1.25 mg/dL 0.57-1.25 GLUCOSE RANDOM (BEAKER) (test fzyq=387) 140 mg/dL 70-105 CALCIUM (BEAKER) (test bsce=797) 9.2 mg/dL 8.4-10.2 EGFR (BEAKER) (test ceka=9688) 56 mL/min/1.73 sq m ESTIMATED GFR IS NOT ACCURATE CREATININE CLEARANCE IN PREDICTING GLOMERULAR FILTRATION RATE. ESTIMATED GFR IS NOT APPLICABLE FOR DIALYSIS PATIENTS. CREATINE KINASE (CK), TOTAL AND [id number] 05:57:00* Test Item Value Reference Range Comments CREATINE KINASE TOTAL (BEAKER) (test olil=890) 33 U/L 29-200 CREATINE KINASE-MB (BEAKER) (test wnmu=863) 1.7 ng/mL 0.0-6.6 CREATINE KINASE-MB INDEX (BEAKER) (test ipxt=911) 5.2 % CK-MB Reference Range:<6.7 Normal6.7-10.0 Borderline>10.0 Abnormal TROPONIN [id number] 05:47:00* Test Item Value Reference Range Comments TROPONIN I (BEAKER) (test wgxr=478) 0.04 ng/mL 0.00-0.03 Troponin I (TnI) levels must be interpreted in the context of the presenting sym ptoms and the clinical findings. Elevated TnI levels indicate myocardial damage, but are not specific for ischemic heart disease. Elevated TnI levels are seen in patients with other cardiac conditions (including myocarditis and congestive h eart failure), and slight TnI elevations occur in patients with other conditions , including sepsis, renal failure, acidosis, acute neurological disease, and per sistent tachyarrhythmia.POCT-GLUCOSE [id number] 13:34:00* Test Item Value Reference Range Comments POC-GLUCOSE METER (BEAKER) (test upte=8840) 194 mg/dL 70-110 TESTED AT [facility] [address] [facility] [address] POCT-GLUCOSE [id number] 11:51:00* Test Item Value Reference Range Comments POC-GLUCOSE METER (BEAKER) (test jbxm=7029) 232 mg/dL 70-110 TESTED AT [facility] [address] [facility] [address] POCT-GLUCOSE [id number] 08:34:00* Test Item Value Reference Range Comments POC-GLUCOSE METER (BEAKER) (test mlul=3295) 147 mg/dL 70-110 TESTED AT [facility] [address] [facility] [address] B-TYPE NATRIURETIC FACTOR (BNP)2017-04-01 06:44:00* Test Item Value Reference Range Comments B-TYPE NATRIURETIC PEPTIDE (BEAKER) (test kqbj=460) 232 pg/mL 0-100 [id number] 06:41:00* Test Item Value Reference Range Comments MAGNESIUM (BEAKER) (test lyny=839) 1.8 mg/dL 1.6-2.6 BASIC METABOLIC [id number] 06:41:00* Test Item Value Reference Range Comments SODIUM (BEAKER) (test jbku=527) 141 meq/L 136-145 POTASSIUM (BEAKER) (test qrrq=811) 3.6 meq/L 3.5-5.1 CHLORIDE (BEAKER) (test bryi=867) 107 meq/L 98-107 CO2 (BEAKER) (test unkz=273) 24 meq/L 22-29 BLOOD UREA NITROGEN (BEAKER) (test dkte=898) 27 mg/dL 7-21 CREATININE (BEAKER) (test hqhg=731) 1.37 mg/dL 0.57-1.25 GLUCOSE RANDOM (BEAKER) (test baoo=583) 144 mg/dL 70-105 CALCIUM (BEAKER) (test plqd=810) 9.2 mg/dL 8.4-10.2 EGFR (BEAKER) (test eyko=4571) 50 mL/min/1.73 sq m ESTIMATED GFR IS NOT ACCURATE CREATININE CLEARANCE IN PREDICTING GLOMERULAR FILTRATION RATE. ESTIMATED GFR IS NOT APPLICABLE FOR DIALYSIS PATIENTS. [id number] 06:26:00* Test Item Value Reference Range Comments PROTIME (BEAKER) (test yxgv=413) 15.1 seconds 11.7-14.7 INR (BEAKER) (test fbdo=558) 1.2 <=5.9 PARTIAL THROMBOPLASTIN TIME (BEAKER) (test egge=025) 31.5 seconds 22.5-36.0 RECOMMENDED COUMADIN/WARFARIN INR THERAPY RANGESSTANDARD DOSE: 2.0 - 3.0 Inclu breanne: PROPHYLAXIS for venous thrombosis, systemic embolization; TREATMENT for cordelia ous thrombosis and/or pulmonary embolus.HIGH RISK: Target INR is 2.5-3.5 for pat ients with mechanical heart valves.CBC W/PLT COUNT & AUTO [id number] 06:15:00* Test Item Value Reference Range Comments WHITE BLOOD CELL COUNT (BEAKER) (test hbvi=563) 9.5 K/ L 3.5-10.5 RED BLOOD CELL COUNT (BEAKER) (test opwa=405) 4.16 M/ L 4.63-6.08 HEMOGLOBIN (BEAKER) (test llvi=419) 11.0 GM/DL 13.7-17.5 HEMATOCRIT (BEAKER) (test yxgi=437) 34.5 % 40.1-51.0 MEAN CORPUSCULAR VOLUME (BEAKER) (test gusn=605) 82.9 fL 79.0-92.2 MEAN CORPUSCULAR HEMOGLOBIN (BEAKER) (test ecwo=093) 26.4 pg 25.7-32.2 MEAN CORPUSCULAR HEMOGLOBIN CONC (BEAKER) (test hfwz=792) 31.9 GM/DL 32.3-36.5 RED CELL DISTRIBUTION WIDTH (BEAKER) (test xfji=478) 13.9 % 11.6-14.4 PLATELET COUNT (BEAKER) (test goze=127) 233 K/CU MM 150-450 MEAN PLATELET VOLUME (BEAKER) (test hjts=538) 11.0 fL 9.4-12.4 NUCLEATED RED BLOOD CELLS (BEAKER) (test aisv=349) 0 /100 WBC 0-0 NEUTROPHILS RELATIVE PERCENT (BEAKER) (test lins=806) 69 % LYMPHOCYTES RELATIVE PERCENT (BEAKER) (test drow=401) 15 % MONOCYTES RELATIVE PERCENT (BEAKER) (test gnpt=346) 10 % EOSINOPHILS RELATIVE PERCENT (BEAKER) (test labs=205) 5 % BASOPHILS RELATIVE PERCENT (BEAKER) (test adnt=927) 1 % NEUTROPHILS ABSOLUTE COUNT (BEAKER) (test pmpi=430) 6.49 K/ L 1.78-5.38 LYMPHOCYTES ABSOLUTE COUNT (BEAKER) (test mfon=540) 1.41 K/ L 1.32-3.57 MONOCYTES ABSOLUTE COUNT (BEAKER) (test jmhe=112) 0.96 K/ L 0.30-0.82 EOSINOPHILS ABSOLUTE COUNT (BEAKER) (test dyty=559) 0.45 K/ L 0.04-0.54 BASOPHILS ABSOLUTE COUNT (BEAKER) (test dkxx=324) 0.12 K/ L 0.01-0.08 IMMATURE GRANULOCYTES-RELATIVE PERCENT (BEAKER) (test txwc=6324) 0 % 0-1 POCT-GLUCOSE [id number] 21:41:00* Test Item Value Reference Range Comments POC-GLUCOSE METER (BEAKER) (test enbx=9930) 195 mg/dL 70-110 TESTED AT [address] [address] POCT-GLUCOSE [id number] 17:27:00* Test Item Value Reference Range Comments POC-GLUCOSE METER (BEAKER) (test vlqy=4637) 110 mg/dL 70-110 TESTED AT [address] [address] POCT-GLUCOSE [id number] 12:18:00* Test Item Value Reference Range Comments POC-GLUCOSE METER (BEAKER) (test lalt=4779) 216 mg/dL 70-110 TESTED AT [address] [address] [id number] 10:47:00* Test Item Value Reference Range Comments MAGNESIUM (BEAKER) (test jqwy=880) 2.0 mg/dL 1.6-2.6 BASIC METABOLIC [id number] 10:47:00* Test Item Value Reference Range Comments SODIUM (BEAKER) (test avux=164) 142 meq/L 136-145 POTASSIUM (BEAKER) (test uotx=281) 4.3 meq/L 3.5-5.1 CHLORIDE (BEAKER) (test siba=047) 103 meq/L 98-107 CO2 (BEAKER) (test ewdy=716) 30 meq/L 22-29 BLOOD UREA NITROGEN (BEAKER) (test tidb=265) 31 mg/dL 7-21 CREATININE (BEAKER) (test hkui=924) 1.68 mg/dL 0.57-1.25 GLUCOSE RANDOM (BEAKER) (test mlyj=540) 194 mg/dL 70-105 CALCIUM (BEAKER) (test tsgr=085) 9.5 mg/dL 8.4-10.2 EGFR (BEAKER) (test qipf=8660) 40 mL/min/1.73 sq m ESTIMATED GFR IS NOT ACCURATE CREATININE CLEARANCE IN PREDICTING GLOMERULAR FILTRATION RATE. ESTIMATED GFR IS NOT APPLICABLE FOR DIALYSIS PATIENTS. POCT-GLUCOSE [id number] 08:05:00* Test Item Value Reference Range Comments POC-GLUCOSE METER (BEAKER) (test hptt=3916) 119 mg/dL 70-110 TESTED AT [facility] [address] [facility] [address] POCT-GLUCOSE [id number] 21:22:00* Test Item Value Reference Range Comments POC-GLUCOSE METER (BEAKER) (test flnr=3460) 242 mg/dL 70-110 TESTED AT [place] [id number] [facility] [address] POCT-GLUCOSE [id number] 17:27:00* Test Item Value Reference Range Comments POC-GLUCOSE METER (BEAKER) (test qspp=6700) 165 mg/dL 70-110 TESTED AT [facility] [address] [facility] [address] [id number] 13:10:00* Test Item Value Reference Range Comments PHOSPHORUS (BEAKER) (test foke=676) 3.4 mg/dL 2.3-4.7 [id number] 13:10:00* Test Item Value Reference Range Comments MAGNESIUM (BEAKER) (test qqsf=758) 1.8 mg/dL 1.6-2.6 BASIC METABOLIC [id number] 13:10:00* Test Item Value Reference Range Comments SODIUM (BEAKER) (test icvl=374) 140 meq/L 136-145 POTASSIUM (BEAKER) (test hffa=428) 3.9 meq/L 3.5-5.1 CHLORIDE (BEAKER) (test zhzx=330) 103 meq/L 98-107 CO2 (BEAKER) (test dgtg=558) 26 meq/L 22-29 BLOOD UREA NITROGEN (BEAKER) (test rvsp=184) 33 mg/dL 7-21 CREATININE (BEAKER) (test umag=319) 1.90 mg/dL 0.57-1.25 GLUCOSE RANDOM (BEAKER) (test iaat=414) 134 mg/dL 70-105 CALCIUM (BEAKER) (test mvqg=459) 9.3 mg/dL 8.4-10.2 EGFR (BEAKER) (test bjzs=5460) 35 mL/min/1.73 sq m ESTIMATED GFR IS NOT ACCURATE CREATININE CLEARANCE IN PREDICTING GLOMERULAR FILTRATION RATE. ESTIMATED GFR IS NOT APPLICABLE FOR DIALYSIS PATIENTS. POCT-GLUCOSE [id number] 12:13:00* Test Item Value Reference Range Comments POC-GLUCOSE METER (BEAKER) (test minn=6328) 169 mg/dL 70-110 TESTED AT [facility] [address] [facility] [address] POCT-GLUCOSE [id number] 08:10:00* Test Item Value Reference Range Comments POC-GLUCOSE METER (BEAKER) (test dybo=2424) 165 mg/dL 70-110 TESTED AT [facility] [address] [facility] [address] CBC W/PLT COUNT & AUTO [id number] 06:40:00* Test Item Value Reference Range Comments WHITE BLOOD CELL COUNT (BEAKER) (test wgdz=438) 9.6 K/ L 3.5-10.5 RED BLOOD CELL COUNT (BEAKER) (test wzug=789) 4.26 M/ L 4.63-6.08 HEMOGLOBIN (BEAKER) (test bgky=447) 11.1 GM/DL 13.7-17.5 HEMATOCRIT (BEAKER) (test tnlg=860) 34.6 % 40.1-51.0 MEAN CORPUSCULAR VOLUME (BEAKER) (test hyvm=665) 81.2 fL 79.0-92.2 MEAN CORPUSCULAR HEMOGLOBIN (BEAKER) (test cmdn=390) 26.1 pg 25.7-32.2 MEAN CORPUSCULAR HEMOGLOBIN CONC (BEAKER) (test qank=134) 32.1 GM/DL 32.3-36.5 RED CELL DISTRIBUTION WIDTH (BEAKER) (test asdr=984) 14.0 % 11.6-14.4 PLATELET COUNT (BEAKER) (test aszd=996) 234 K/CU MM 150-450 MEAN PLATELET VOLUME (BEAKER) (test nbmu=682) 11.3 fL 9.4-12.4 NUCLEATED RED BLOOD CELLS (BEAKER) (test iene=856) 0 /100 WBC 0-0 NEUTROPHILS RELATIVE PERCENT (BEAKER) (test uocn=485) 68 % LYMPHOCYTES RELATIVE PERCENT (BEAKER) (test sfbc=138) 17 % MONOCYTES RELATIVE PERCENT (BEAKER) (test wtvg=822) 9 % EOSINOPHILS RELATIVE PERCENT (BEAKER) (test ebpu=589) 5 % BASOPHILS RELATIVE PERCENT (BEAKER) (test uubn=002) 1 % NEUTROPHILS ABSOLUTE COUNT (BEAKER) (test bnsi=739) 6.50 K/ L 1.78-5.38 LYMPHOCYTES ABSOLUTE COUNT (BEAKER) (test yamo=928) 1.61 K/ L 1.32-3.57 MONOCYTES ABSOLUTE COUNT (BEAKER) (test xbsa=190) 0.87 K/ L 0.30-0.82 EOSINOPHILS ABSOLUTE COUNT (BEAKER) (test efyw=222) 0.50 K/ L 0.04-0.54 BASOPHILS ABSOLUTE COUNT (BEAKER) (test aoon=284) 0.07 K/ L 0.01-0.08 IMMATURE GRANULOCYTES-RELATIVE PERCENT (BEAKER) (test gtfi=3578) 0 % 0-1 B-TYPE NATRIURETIC FACTOR (BNP)2017-03-30 06:35:00* Test Item Value Reference Range Comments B-TYPE NATRIURETIC PEPTIDE (BEAKER) (test hgrl=366) 280 pg/mL 0-100 POCT-GLUCOSE [id number] 20:33:00* Test Item Value Reference Range Comments POC-GLUCOSE METER (BEAKER) (test qswz=7326) 196 mg/dL 70-110 TESTED AT [address] [address] POCT-GLUCOSE [id number] 17:42:00* Test Item Value Reference Range Comments POC-GLUCOSE METER (BEAKER) (test mxux=1661) 178 mg/dL 70-110 TESTED AT [address] [address] POCT-GLUCOSE [id number] 12:16:00* Test Item Value Reference Range Comments POC-GLUCOSE METER (BEAKER) (test zbar=4435) 189 mg/dL 70-110 TESTED AT [address] [address] POCT-GLUCOSE [id number] 08:16:00* Test Item Value Reference Range Comments POC-GLUCOSE METER (BEAKER) (test rzxn=4246) 160 mg/dL 70-110 TESTED AT [address] [address] [id number] 06:42:00* Test Item Value Reference Range Comments PHOSPHORUS (BEAKER) (test exdu=418) 4.5 mg/dL 2.3-4.7 [id number] 06:42:00* Test Item Value Reference Range Comments MAGNESIUM (BEAKER) (test eryw=664) 2.2 mg/dL 1.6-2.6 BASIC METABOLIC [id number] 06:42:00* Test Item Value Reference Range Comments SODIUM (BEAKER) (test wzkk=697) 141 meq/L 136-145 POTASSIUM (BEAKER) (test qtas=107) 4.2 meq/L 3.5-5.1 CHLORIDE (BEAKER) (test aviv=093) 103 meq/L 98-107 CO2 (BEAKER) (test okpc=793) 27 meq/L 22-29 BLOOD UREA NITROGEN (BEAKER) (test gojs=208) 41 mg/dL 7-21 CREATININE (BEAKER) (test pnbp=158) 2.41 mg/dL 0.57-1.25 GLUCOSE RANDOM (BEAKER) (test csuc=383) 156 mg/dL 70-105 CALCIUM (BEAKER) (test wmxa=772) 9.8 mg/dL 8.4-10.2 EGFR (BEAKER) (test kkzj=6456) 26 mL/min/1.73 sq m ESTIMATED GFR IS NOT ACCURATE CREATININE CLEARANCE IN PREDICTING GLOMERULAR FILTRATION RATE. ESTIMATED GFR IS NOT APPLICABLE FOR DIALYSIS PATIENTS. CBC W/PLT COUNT & AUTO [id number] 06:24:00* Test Item Value Reference Range Comments WHITE BLOOD CELL COUNT (BEAKER) (test mtxr=000) 9.5 K/ L 3.5-10.5 RED BLOOD CELL COUNT (BEAKER) (test ttiu=353) 4.55 M/ L 4.63-6.08 HEMOGLOBIN (BEAKER) (test vhxg=268) 12.0 GM/DL 13.7-17.5 HEMATOCRIT (BEAKER) (test ykgr=726) 37.7 % 40.1-51.0 MEAN CORPUSCULAR VOLUME (BEAKER) (test edid=176) 82.9 fL 79.0-92.2 MEAN CORPUSCULAR HEMOGLOBIN (BEAKER) (test undw=539) 26.4 pg 25.7-32.2 MEAN CORPUSCULAR HEMOGLOBIN CONC (BEAKER) (test arjv=245) 31.8 GM/DL 32.3-36.5 RED CELL DISTRIBUTION WIDTH (BEAKER) (test mfer=753) 14.3 % 11.6-14.4 PLATELET COUNT (BEAKER) (test tikp=367) 227 K/CU MM 150-450 MEAN PLATELET VOLUME (BEAKER) (test lhph=332) 11.5 fL 9.4-12.4 NUCLEATED RED BLOOD CELLS (BEAKER) (test yetb=348) 0 /100 WBC 0-0 NEUTROPHILS RELATIVE PERCENT (BEAKER) (test rstd=928) 67 % LYMPHOCYTES RELATIVE PERCENT (BEAKER) (test uhwl=613) 17 % MONOCYTES RELATIVE PERCENT (BEAKER) (test zpuv=852) 10 % EOSINOPHILS RELATIVE PERCENT (BEAKER) (test gigo=449) 5 % BASOPHILS RELATIVE PERCENT (BEAKER) (test obli=541) 1 % NEUTROPHILS ABSOLUTE COUNT (BEAKER) (test bbcr=026) 6.33 K/ L 1.78-5.38 LYMPHOCYTES ABSOLUTE COUNT (BEAKER) (test nfjl=414) 1.64 K/ L 1.32-3.57 MONOCYTES ABSOLUTE COUNT (BEAKER) (test baep=013) 0.94 K/ L 0.30-0.82 EOSINOPHILS ABSOLUTE COUNT (BEAKER) (test vwyr=197) 0.50 K/ L 0.04-0.54 BASOPHILS ABSOLUTE COUNT (BEAKER) (test kbnr=606) 0.07 K/ L 0.01-0.08 IMMATURE GRANULOCYTES-RELATIVE PERCENT (BEAKER) (test mloj=1799) 1 % 0-1 B-TYPE NATRIURETIC FACTOR (BNP)2017-03-29 06:22:00* Test Item Value Reference Range Comments B-TYPE NATRIURETIC PEPTIDE (BEAKER) (test gsyd=035) 166 pg/mL 0-100 POCT-GLUCOSE [id number] 21:58:00* Test Item Value Reference Range Comments POC-GLUCOSE METER (BEAKER) (test luum=3167) 216 mg/dL 70-110 TESTED AT [facility] [address] [facility] [address] POCT-GLUCOSE [id number] 18:01:00* Test Item Value Reference Range Comments POC-GLUCOSE METER (BEAKER) (test ihic=8073) 183 mg/dL 70-110 TESTED AT [facility] [address] [facility] [address] POCT-GLUCOSE [id number] 11:34:00* Test Item Value Reference Range Comments POC-GLUCOSE METER (BEAKER) (test rilh=8502) 274 mg/dL 70-110 TESTED AT [facility] [address] [facility] [address] POCT-GLUCOSE [id number] 08:17:00* Test Item Value Reference Range Comments POC-GLUCOSE METER (BEAKER) (test jnsg=7370) 180 mg/dL 70-110 TESTED AT [facility] [address] [facility] [address] BASIC METABOLIC [id number] 06:23:00* Test Item Value Reference Range Comments SODIUM (BEAKER) (test szvx=599) 139 meq/L 136-145 POTASSIUM (BEAKER) (test nmof=542) 3.7 meq/L 3.5-5.1 CHLORIDE (BEAKER) (test zmyv=133) 102 meq/L 98-107 CO2 (BEAKER) (test cdxu=682) 27 meq/L 22-29 BLOOD UREA NITROGEN (BEAKER) (test pbvl=771) 37 mg/dL 7-21 CREATININE (BEAKER) (test kvmv=504) 2.71 mg/dL 0.57-1.25 GLUCOSE RANDOM (BEAKER) (test mdca=993) 133 mg/dL 70-105 CALCIUM (BEAKER) (test cvqq=029) 9.2 mg/dL 8.4-10.2 EGFR (BEAKER) (test bohg=4572) 23 mL/min/1.73 sq m ESTIMATED GFR IS NOT ACCURATE CREATININE CLEARANCE IN PREDICTING GLOMERULAR FILTRATION RATE. ESTIMATED GFR IS NOT APPLICABLE FOR DIALYSIS PATIENTS. CBC W/PLT COUNT & AUTO [id number] 06:01:00* Test Item Value Reference Range Comments WHITE BLOOD CELL COUNT (BEAKER) (test vrdv=450) 8.8 K/ L 3.5-10.5 RED BLOOD CELL COUNT (BEAKER) (test qcet=542) 4.42 M/ L 4.63-6.08 HEMOGLOBIN (BEAKER) (test dnet=020) 11.5 GM/DL 13.7-17.5 HEMATOCRIT (BEAKER) (test xuyy=251) 35.9 % 40.1-51.0 MEAN CORPUSCULAR VOLUME (BEAKER) (test csrd=023) 81.2 fL 79.0-92.2 MEAN CORPUSCULAR HEMOGLOBIN (BEAKER) (test qdgp=658) 26.0 pg 25.7-32.2 MEAN CORPUSCULAR HEMOGLOBIN CONC (BEAKER) (test duoa=581) 32.0 GM/DL 32.3-36.5 RED CELL DISTRIBUTION WIDTH (BEAKER) (test otsu=502) 14.1 % 11.6-14.4 PLATELET COUNT (BEAKER) (test iuqr=283) 222 K/CU MM 150-450 MEAN PLATELET VOLUME (BEAKER) (test tvhw=060) 11.7 fL 9.4-12.4 NUCLEATED RED BLOOD CELLS (BEAKER) (test cpxi=938) 0 /100 WBC 0-0 NEUTROPHILS RELATIVE PERCENT (BEAKER) (test onji=226) 68 % LYMPHOCYTES RELATIVE PERCENT (BEAKER) (test wxoa=804) 14 % MONOCYTES RELATIVE PERCENT (BEAKER) (test dtqz=828) 10 % EOSINOPHILS RELATIVE PERCENT (BEAKER) (test bswi=491) 6 % BASOPHILS RELATIVE PERCENT (BEAKER) (test peew=320) 1 % NEUTROPHILS ABSOLUTE COUNT (BEAKER) (test zlrf=680) 5.99 K/ L 1.78-5.38 LYMPHOCYTES ABSOLUTE COUNT (BEAKER) (test ryyq=063) 1.25 K/ L 1.32-3.57 MONOCYTES ABSOLUTE COUNT (BEAKER) (test qtde=400) 0.91 K/ L 0.30-0.82 EOSINOPHILS ABSOLUTE COUNT (BEAKER) (test mfkz=399) 0.52 K/ L 0.04-0.54 BASOPHILS ABSOLUTE COUNT (BEAKER) (test coks=248) 0.06 K/ L 0.01-0.08 IMMATURE GRANULOCYTES-RELATIVE PERCENT (BEAKER) (test sful=0735) 0 % 0-1 [id number] 05:39:00* Test Item Value Reference Range Comments PHOSPHORUS (BEAKER) (test vquh=865) 3.5 mg/dL 2.3-4.7 [id number] 05:39:00* Test Item Value Reference Range Comments MAGNESIUM (BEAKER) (test ajhf=220) 2.1 mg/dL 1.6-2.6 B-TYPE NATRIURETIC FACTOR (BNP)2017-03-28 05:37:00* Test Item Value Reference Range Comments B-TYPE NATRIURETIC PEPTIDE (BEAKER) (test meqy=946) 301 pg/mL 0-100 POCT-GLUCOSE [id number] 04:43:00* Test Item Value Reference Range Comments POC-GLUCOSE METER (BEAKER) (test srdr=2095) 133 mg/dL 70-110 TESTED AT [address] [address] POCT-GLUCOSE [id number] 20:29:00* Test Item Value Reference Range Comments POC-GLUCOSE METER (BEAKER) (test krro=8878) 170 mg/dL 70-110 TESTED AT [address] [address] POCT-GLUCOSE [id number] 17:18:00* Test Item Value Reference Range Comments POC-GLUCOSE METER (BEAKER) (test pmpx=5686) 230 mg/dL 70-110 TESTED AT [address] [address] POCT-GLUCOSE [id number] 10:52:00* Test Item Value Reference Range Comments POC-GLUCOSE METER (BEAKER) (test bgrt=1459) 136 mg/dL 70-110 TESTED AT [address] [address] POCT-GLUCOSE [id number] 09:23:00* Test Item Value Reference Range Comments POC-GLUCOSE METER (BEAKER) (test vibk=1675) 150 mg/dL 70-110 TESTED AT [address] [address] BASIC METABOLIC [id number] 05:44:00* Test Item Value Reference Range Comments SODIUM (BEAKER) (test dmnl=692) 135 meq/L 136-145 POTASSIUM (BEAKER) (test lwzk=228) 3.8 meq/L 3.5-5.1 CHLORIDE (BEAKER) (test fwra=531) 97 meq/L 98-107 CO2 (BEAKER) (test iusz=110) 24 meq/L 22-29 BLOOD UREA NITROGEN (BEAKER) (test vhwq=956) 61 mg/dL 7-21 CREATININE (BEAKER) (test mlto=587) 3.79 mg/dL 0.57-1.25 GLUCOSE RANDOM (BEAKER) (test tsbf=021) 163 mg/dL 70-105 CALCIUM (BEAKER) (test jomt=817) 9.0 mg/dL 8.4-10.2 EGFR (BEAKER) (test mznm=4456) 16 mL/min/1.73 sq m ESTIMATED GFR IS NOT ACCURATE CREATININE CLEARANCE IN PREDICTING GLOMERULAR FILTRATION RATE. ESTIMATED GFR IS NOT APPLICABLE FOR DIALYSIS PATIENTS. [id number] 05:40:00* Test Item Value Reference Range Comments PHOSPHORUS (BEAKER) (test wzll=786) 4.3 mg/dL 2.3-4.7 [id number] 05:40:00* Test Item Value Reference Range Comments MAGNESIUM (BEAKER) (test vcxj=960) 2.2 mg/dL 1.6-2.6 CBC W/PLT COUNT & AUTO [id number] 05:20:00* Test Item Value Reference Range Comments WHITE BLOOD CELL COUNT (BEAKER) (test nqwt=959) 9.6 K/ L 3.5-10.5 RED BLOOD CELL COUNT (BEAKER) (test lrzx=929) 4.44 M/ L 4.63-6.08 HEMOGLOBIN (BEAKER) (test lttp=724) 11.9 GM/DL 13.7-17.5 HEMATOCRIT (BEAKER) (test vkcl=835) 35.7 % 40.1-51.0 MEAN CORPUSCULAR VOLUME (BEAKER) (test ixdp=402) 80.4 fL 79.0-92.2 MEAN CORPUSCULAR HEMOGLOBIN (BEAKER) (test gnml=551) 26.8 pg 25.7-32.2 MEAN CORPUSCULAR HEMOGLOBIN CONC (BEAKER) (test rzjo=285) 33.3 GM/DL 32.3-36.5 RED CELL DISTRIBUTION WIDTH (BEAKER) (test aluc=273) 14.2 % 11.6-14.4 PLATELET COUNT (BEAKER) (test hdae=840) 203 K/CU MM 150-450 MEAN PLATELET VOLUME (BEAKER) (test dzep=809) 11.6 fL 9.4-12.4 NUCLEATED RED BLOOD CELLS (BEAKER) (test stly=626) 0 /100 WBC 0-0 NEUTROPHILS RELATIVE PERCENT (BEAKER) (test dvyq=225) 65 % LYMPHOCYTES RELATIVE PERCENT (BEAKER) (test wgdt=520) 17 % MONOCYTES RELATIVE PERCENT (BEAKER) (test bdju=361) 11 % EOSINOPHILS RELATIVE PERCENT (BEAKER) (test kedm=581) 6 % BASOPHILS RELATIVE PERCENT (BEAKER) (test wxwa=926) 1 % NEUTROPHILS ABSOLUTE COUNT (BEAKER) (test iwwj=014) 6.24 K/ L 1.78-5.38 LYMPHOCYTES ABSOLUTE COUNT (BEAKER) (test bife=563) 1.60 K/ L 1.32-3.57 MONOCYTES ABSOLUTE COUNT (BEAKER) (test clsi=116) 1.06 K/ L 0.30-0.82 EOSINOPHILS ABSOLUTE COUNT (BEAKER) (test ezoq=798) 0.62 K/ L 0.04-0.54 BASOPHILS ABSOLUTE COUNT (BEAKER) (test wfub=575) 0.08 K/ L 0.01-0.08 IMMATURE GRANULOCYTES-RELATIVE PERCENT (BEAKER) (test wcfe=6699) 0 % 0-1 B-TYPE NATRIURETIC FACTOR (BNP)2017-03-27 05:19:00* Test Item Value Reference Range Comments B-TYPE NATRIURETIC PEPTIDE (BEAKER) (test nghv=860) 181 pg/mL 0-100 HEPATITIS B [id number] 03:35:00* Test Item Value Reference Range Comments HEPATITIS B CORE TOTAL ANTIBODY (BEAKER) (test hitk=806) Reactive Nonreactive HEPATITIS B SURFACE ANTIBODY (BEAKER) (test tgve=552) 2802.4 mIU/mL <8.0 HEPATITIS B SURFACE ANTIGEN (2) (BEAKER) (test dcvx=4358) Nonreactive Nonreactive POCT-GLUCOSE [id number] 22:46:00* Test Item Value Reference Range Comments POC-GLUCOSE METER (BEAKER) (test ibvy=0096) 186 mg/dL 70-110 TESTED AT [facility] [address] [facility] [address] URINE PROTEIN ELECTROPHORESIS, [id number] 17:38:00* Test Item Value Reference Range Comments PROTEIN, URINE (BEAKER) (test dfwl=2056) 38 mg/dL 0-14 ALBUMIN URINE ELP (BEAKER) (test hvnj=0967) 56.2 % GAMMA GLOBULIN URINE (BEAKER) (test zmgw=8286) 43.8 % UPEP, ID-438 (BEAKER) (test qzqg=8069) Urine electrophoresis shows no evidence of monclonal proteins or free light chains. [id number] (BEAKER) (test wtky=2136) Samantha Fountain MD (electronic signature) POCT-GLUCOSE [id number] 17:28:00* Test Item Value Reference Range Comments POC-GLUCOSE METER (BEAKER) (test uqrp=1010) 200 mg/dL 70-110 TESTED AT [facility] [address] [facility] [address] PROTEIN ELECTROPHORESIS, [id number] 16:12:00* Test Item Value Reference Range Comments ALBUMIN FRACTION (BEAKER) (test lfzw=778) 3.0 g/dL 3.5-5.5 ALPHA 1 FRACTION (BEAKER) (test qrxy=748) 0.4 g/dL 0.2-0.4 ALPHA 2 FRACTION (BEAKER) (test fuwj=050) 1.0 g/dL 0.5-0.9 BETA FRACTION (BEAKER) (test zfsw=465) 1.0 g/dL 0.6-1.1 GAMMA GLOBULIN FRACTION (BEAKER) (test qnti=303) 0.7 g/dL 0.7-1.7 INTERPRETATION-119 (BEAKER) (test aitz=8769) Normal electrophoretic pattern. AISC-[id number]-581 (BEAKER) (test cpbf=4556) Samantha Fountain MD (electronic signature) PROTEIN TOTAL SERUM, SPEP (BEAKER) (test dgyv=1935) 6.2 gm/dL 6.0-8.3 ANG, NON-TUNNELED CATH >5 Y.O. [id number] 13:56:00Reason for exam:->needs HDFINAL REPORT Nontunneled dialysis catheter insertion, 03/26/2017. History: Renal failure. Modality: Fluoroscopy and sonography. Sedation: None. Earth Science Teacher: Jessica. Jail Keeper: None. Approach: Right internal ju gular vein Estimated blood loss: < 5 cc. Specimen: None. Fluoroscopy Time: 0.1 min. Dose (Ka,r): 6.4 mGy. Technique: Informed written consent was obtained. Discussion of risks, benefits, and alternatives were made with the patient. The patient expressed understanding and agreed to proceed. All elements maximal sterile barrier technique was utilized for this procedure, including utilization of sterile scrub solution for skin prep, a large sterile sheet to cover the areas of the patient that were not prep ped, and hand hygiene, mask, head covering, and sterile gown for performing radi ologist and scrub technologist. The skin was anesthetized with 2% lidocaine. Ul trasound evaluation showed a patent and compressible right internal jugular vein , which was punctured under direct real-time ultrasound guidance with a micropun cture needle. An ultrasound image was saved to PACS. A microwire and sheath wer e placed. A 0.035 inch wire was placed through the sheath into the right atrium. The tract was serially dilated. The 15 cm Schon temporary dialysis catheter was placed over the wire into the vein. The ports were flushed and aspirated easily following placement. The catheter was sutured to the skin to secure its place ment. Vital signs were monitored throughout the procedure by a nurse, and ilan wellsd stable. The patient tolerated the procedure well and left the department in the same condition. Results: Spot radiograph of the chest demonstra jeanne the new dialysis catheter to lie in the expected position with its tip overl trey the superior right atrium. Impression: Successful, uncomplicated placement of a right internal jugular nontunneled dialysis catheter using sonographic and fluoroscopic guidance. Signed: Carlos Almendarez MDReport Verified Date/Time: 03/26/2017 13:56:27 Reading Location: [place] [address] Angio Body Reading Room -GLUCOSE [id number] 11:44:00* Test Item Value Reference Range Comments POC-GLUCOSE METER (BEAKER) (test cqot=7303) 231 mg/dL 70-110 TESTED AT [address] [address] POCT-GLUCOSE [id number] 08:26:00* Test Item Value Reference Range Comments POC-GLUCOSE METER (BEAKER) (test fpcr=6824) 188 mg/dL 70-110 TESTED AT [address] [address] B-TYPE NATRIURETIC FACTOR (BNP)2017-03-26 06:32:00* Test Item Value Reference Range Comments B-TYPE NATRIURETIC PEPTIDE (BEAKER) (test vjlp=486) 135 pg/mL 0-100 BASIC METABOLIC [id number] 06:29:00* Test Item Value Reference Range Comments SODIUM (BEAKER) (test flcf=297) 132 meq/L 136-145 POTASSIUM (BEAKER) (test uzdt=653) 3.5 meq/L 3.5-5.1 CHLORIDE (BEAKER) (test ljcp=128) 92 meq/L 98-107 CO2 (BEAKER) (test lksz=739) 26 meq/L 22-29 BLOOD UREA NITROGEN (BEAKER) (test sckx=957) 90 mg/dL 7-21 CREATININE (BEAKER) (test ipgv=052) 5.15 mg/dL 0.57-1.25 GLUCOSE RANDOM (BEAKER) (test wcmg=139) 155 mg/dL 70-105 CALCIUM (BEAKER) (test dsky=962) 9.0 mg/dL 8.4-10.2 EGFR (BEAKER) (test bkgj=3741) 11 mL/min/1.73 sq m ESTIMATED GFR IS NOT ACCURATE CREATININE CLEARANCE IN PREDICTING GLOMERULAR FILTRATION RATE. ESTIMATED GFR IS NOT APPLICABLE FOR DIALYSIS PATIENTS. [id number] 06:15:00* Test Item Value Reference Range Comments PHOSPHORUS (BEAKER) (test uirl=326) 5.1 mg/dL 2.3-4.7 [id number] 06:15:00* Test Item Value Reference Range Comments MAGNESIUM (BEAKER) (test izwu=657) 2.5 mg/dL 1.6-2.6 CBC W/PLT COUNT & AUTO [id number] 05:41:00* Test Item Value Reference Range Comments WHITE BLOOD CELL COUNT (BEAKER) (test soby=515) 11.7 K/ L 3.5-10.5 RED BLOOD CELL COUNT (BEAKER) (test butv=351) 4.36 M/ L 4.63-6.08 HEMOGLOBIN (BEAKER) (test wxyn=335) 11.5 GM/DL 13.7-17.5 HEMATOCRIT (BEAKER) (test wzos=786) 34.6 % 40.1-51.0 MEAN CORPUSCULAR VOLUME (BEAKER) (test qttm=229) 79.4 fL 79.0-92.2 MEAN CORPUSCULAR HEMOGLOBIN (BEAKER) (test utsb=416) 26.4 pg 25.7-32.2 MEAN CORPUSCULAR HEMOGLOBIN CONC (BEAKER) (test tzkp=960) 33.2 GM/DL 32.3-36.5 RED CELL DISTRIBUTION WIDTH (BEAKER) (test elsp=730) 14.3 % 11.6-14.4 PLATELET COUNT (BEAKER) (test ikvm=967) 218 K/CU MM 150-450 MEAN PLATELET VOLUME (BEAKER) (test ogti=019) 11.7 fL 9.4-12.4 NUCLEATED RED BLOOD CELLS (BEAKER) (test pfzv=825) 0 /100 WBC 0-0 NEUTROPHILS RELATIVE PERCENT (BEAKER) (test gykw=012) 70 % LYMPHOCYTES RELATIVE PERCENT (BEAKER) (test pjvn=141) 12 % MONOCYTES RELATIVE PERCENT (BEAKER) (test jnlc=638) 10 % EOSINOPHILS RELATIVE PERCENT (BEAKER) (test kzwy=132) 7 % BASOPHILS RELATIVE PERCENT (BEAKER) (test lutg=208) 1 % NEUTROPHILS ABSOLUTE COUNT (BEAKER) (test yxlu=340) 8.22 K/ L 1.78-5.38 LYMPHOCYTES ABSOLUTE COUNT (BEAKER) (test mfxa=246) 1.40 K/ L 1.32-3.57 MONOCYTES ABSOLUTE COUNT (BEAKER) (test ipxr=438) 1.17 K/ L 0.30-0.82 EOSINOPHILS ABSOLUTE COUNT (BEAKER) (test bajh=412) 0.76 K/ L 0.04-0.54 BASOPHILS ABSOLUTE COUNT (BEAKER) (test imng=764) 0.09 K/ L 0.01-0.08 IMMATURE GRANULOCYTES-RELATIVE PERCENT (BEAKER) (test edmn=0875) 0 % 0-1 POCT-GLUCOSE [id number] 21:09:00* Test Item Value Reference Range Comments POC-GLUCOSE METER (BEAKER) (test sirb=4583) 205 mg/dL 70-110 TESTED AT [place] [id number] POCT-GLUCOSE [id number] 17:18:00* Test Item Value Reference Range Comments POC-GLUCOSE METER (BEAKER) (test jpvl=1805) 195 mg/dL 70-110 TESTED AT [address] [address] POCT-GLUCOSE [id number] 14:21:00* Test Item Value Reference Range Comments POC-GLUCOSE METER (BEAKER) (test hrnv=0240) 223 mg/dL 70-110 TESTED AT [place] [address] POCT-GLUCOSE [id number] 10:08:00* Test Item Value Reference Range Comments POC-GLUCOSE METER (BEAKER) (test spzr=4811) 208 mg/dL 70-110 TESTED AT [place] [address] B-TYPE NATRIURETIC FACTOR (BNP)2017-03-25 07:40:00* Test Item Value Reference Range Comments B-TYPE NATRIURETIC PEPTIDE (BEAKER) (test nwbp=762) 255 pg/mL 0-100 [id number] 07:33:00* Test Item Value Reference Range Comments MAGNESIUM (BEAKER) (test rntl=607) 2.4 mg/dL 1.6-2.6 BASIC METABOLIC [id number] 07:33:00* Test Item Value Reference Range Comments SODIUM (BEAKER) (test tkac=349) 133 meq/L 136-145 POTASSIUM (BEAKER) (test tgkt=182) 3.7 meq/L 3.5-5.1 CHLORIDE (BEAKER) (test cmbe=746) 93 meq/L 98-107 CO2 (BEAKER) (test aron=289) 29 meq/L 22-29 BLOOD UREA NITROGEN (BEAKER) (test anlx=169) 76 mg/dL 7-21 CREATININE (BEAKER) (test cvpp=255) 4.29 mg/dL 0.57-1.25 GLUCOSE RANDOM (BEAKER) (test urjr=563) 197 mg/dL 70-105 CALCIUM (BEAKER) (test bumx=773) 9.0 mg/dL 8.4-10.2 EGFR (BEAKER) (test xnrt=5086) 13 mL/min/1.73 sq m ESTIMATED GFR IS NOT ACCURATE CREATININE CLEARANCE IN PREDICTING GLOMERULAR FILTRATION RATE. ESTIMATED GFR IS NOT APPLICABLE FOR DIALYSIS PATIENTS. CBC W/PLT COUNT & AUTO [id number] 06:46:00* Test Item Value Reference Range Comments WHITE BLOOD CELL COUNT (BEAKER) (test pqck=473) 11.8 K/ L 3.5-10.5 RED BLOOD CELL COUNT (BEAKER) (test qqgx=373) 4.47 M/ L 4.63-6.08 HEMOGLOBIN (BEAKER) (test jppm=524) 11.9 GM/DL 13.7-17.5 HEMATOCRIT (BEAKER) (test tzee=083) 36.0 % 40.1-51.0 MEAN CORPUSCULAR VOLUME (BEAKER) (test aycb=513) 80.5 fL 79.0-92.2 MEAN CORPUSCULAR HEMOGLOBIN (BEAKER) (test qpoi=002) 26.6 pg 25.7-32.2 MEAN CORPUSCULAR HEMOGLOBIN CONC (BEAKER) (test bcik=575) 33.1 GM/DL 32.3-36.5 RED CELL DISTRIBUTION WIDTH (BEAKER) (test xgnt=590) 14.3 % 11.6-14.4 PLATELET COUNT (BEAKER) (test kfxv=123) 190 K/CU MM 150-450 MEAN PLATELET VOLUME (BEAKER) (test qwdz=475) 12.4 fL 9.4-12.4 NUCLEATED RED BLOOD CELLS (BEAKER) (test cmfr=947) 0 /100 WBC 0-0 NEUTROPHILS RELATIVE PERCENT (BEAKER) (test nrlo=781) 73 % LYMPHOCYTES RELATIVE PERCENT (BEAKER) (test oxbg=073) 11 % MONOCYTES RELATIVE PERCENT (BEAKER) (test xafw=724) 10 % EOSINOPHILS RELATIVE PERCENT (BEAKER) (test mhkr=199) 5 % BASOPHILS RELATIVE PERCENT (BEAKER) (test phdq=979) 1 % NEUTROPHILS ABSOLUTE COUNT (BEAKER) (test kein=722) 8.60 K/ L 1.78-5.38 LYMPHOCYTES ABSOLUTE COUNT (BEAKER) (test nfrz=521) 1.27 K/ L 1.32-3.57 MONOCYTES ABSOLUTE COUNT (BEAKER) (test triv=178) 1.15 K/ L 0.30-0.82 EOSINOPHILS ABSOLUTE COUNT (BEAKER) (test mxbd=353) 0.59 K/ L 0.04-0.54 BASOPHILS ABSOLUTE COUNT (BEAKER) (test fjia=905) 0.06 K/ L 0.01-0.08 IMMATURE GRANULOCYTES-RELATIVE PERCENT (BEAKER) (test lkab=4519) 1 % 0-1 U/S, RENAL, [id number] 02:37:00Reason for exam:->akiFINAL REPORT U/S, RENAL, COMPLETE CLINICAL INDICATION: "pradeep" COMPARISON: None TECHNIQUE: The kidneys and urinary bladder were evaluated using real time cruz scale and color Doppler sonography. FINDINGS:Right kidney: Normal morphology without stone, mass or hydronephrosis. Simple cyst in the upper pole right kidney. Left kidney: Normal morphology without stone, mass or hydronephrosis. Renal Vasculature: Doppler interrogation reveals preserved vascular flow in the main renal arteries and veins bilaterally. The visualized portions of the abdominal aorta and IVC are unremarkable. Urinary bladder: Prost ate indenting the bladder. IMPRESSION: Prostatic hypertrophy.No hydronephros is. Signed: Juan Jose Burns MDReport Verified Date/Time: 03/25/2017 02:37:35 Re ading Location: [facility] C013X Ortho Consult Reading Room Electronically sign ed by: JUAN JOSE BURNS MD on 03/25/2017 02:37 AM POCT-GLUCOSE [id number] 22:05:00* Test Item Value Reference Range Comments POC-GLUCOSE METER (BEAKER) (test zkmh=7700) 264 mg/dL 70-110 TESTED AT [facility] [address] [facility] [address] CREATININE, RANDOM [id number] 18:57:00* Test Item Value Reference Range Comments CREATININE URINE (BEAKER) (test dqfg=053) 113.4 mg/dL Reference Range: No NormalsPROTEIN, RANDOM [id number] 18:57:00* Test Item Value Reference Range Comments PROTEIN, URINE (BEAKER) (test gtaz=9764) 38 mg/dL 0-14 URINALYSIS W/ [id number] 18:45:00* Test Item Value Reference Range Comments COLOR (BEAKER) (test pean=896) Yellow CLARITY (BEAKER) (test opkl=848) Clear SPECIFIC GRAVITY UA (BEAKER) (test cbtd=441) 1.024 1.001-1.035 PH UA (BEAKER) (test getl=015) 5.0 5.0-8.0 PROTEIN UA (BEAKER) (test wsps=242) 30 mg/dL Negative GLUCOSE UA (BEAKER) (test bdeo=003) 150 mg/dL Negative KETONES UA (BEAKER) (test myob=816) Negative Negative BILIRUBIN UA (BEAKER) (test mknq=346) Negative Negative BLOOD UA (BEAKER) (test paux=176) Negative Negative NITRITE UA (BEAKER) (test aywn=951) Negative Negative LEUKOCYTE ESTERASE UA (BEAKER) (test kfhu=358) Trace Negative UROBILINOGEN UA (BEAKER) (test tyhf=462) 0.2 mg/dL 0.2-1.0 RBC UA (BEAKER) (test udst=709) 1 /HPF WBC UA (BEAKER) (test txnl=245) 3 /HPF MUCUS (BEAKER) (test ydaw=5475) Rare SOURCE(BEAKER) (test kqbs=2282) Urine, Voided POCT-GLUCOSE [id number] 18:13:00* Test Item Value Reference Range Comments POC-GLUCOSE METER (BEAKER) (test mjfv=8921) 189 mg/dL 70-110 TESTED AT [place] [id number] [facility] [address] POCT-GLUCOSE [id number] 12:38:00* Test Item Value Reference Range Comments POC-GLUCOSE METER (BEAKER) (test klkv=2965) 266 mg/dL 70-110 TESTED AT [address] [address] POCT-GLUCOSE [id number] 08:55:00* Test Item Value Reference Range Comments POC-GLUCOSE METER (BEAKER) (test woel=0110) 342 mg/dL 70-110 Notified [place] LOW/TESTED AT [address] [address] BASIC METABOLIC [id number] 08:32:00* Test Item Value Reference Range Comments SODIUM (BEAKER) (test zypo=445) 133 meq/L 136-145 POTASSIUM (BEAKER) (test ttrc=635) 3.8 meq/L 3.5-5.1 CHLORIDE (BEAKER) (test vaqt=269) 94 meq/L 98-107 CO2 (BEAKER) (test dhjt=072) 26 meq/L 22-29 BLOOD UREA NITROGEN (BEAKER) (test zevq=962) 59 mg/dL 7-21 CREATININE (BEAKER) (test tpgb=000) 2.52 mg/dL 0.57-1.25 GLUCOSE RANDOM (BEAKER) (test fxgu=593) 265 mg/dL 70-105 CALCIUM (BEAKER) (test inwg=311) 8.8 mg/dL 8.4-10.2 EGFR (BEAKER) (test dwkz=6719) 25 mL/min/1.73 sq m ESTIMATED GFR IS NOT ACCURATE CREATININE CLEARANCE IN PREDICTING GLOMERULAR FILTRATION RATE. ESTIMATED GFR IS NOT APPLICABLE FOR DIALYSIS PATIENTS. [id number] 08:28:00* Test Item Value Reference Range Comments MAGNESIUM (BEAKER) (test mbkq=300) 2.1 mg/dL 1.6-2.6 CBC W/PLT COUNT & AUTO [id number] 07:54:00* Test Item Value Reference Range Comments WHITE BLOOD CELL COUNT (BEAKER) (test izzt=860) 14.7 K/ L 3.5-10.5 RED BLOOD CELL COUNT (BEAKER) (test rwmh=000) 4.50 M/ L 4.63-6.08 HEMOGLOBIN (BEAKER) (test phlk=003) 12.0 GM/DL 13.7-17.5 HEMATOCRIT (BEAKER) (test vtud=488) 36.7 % 40.1-51.0 MEAN CORPUSCULAR VOLUME (BEAKER) (test owng=422) 81.6 fL 79.0-92.2 MEAN CORPUSCULAR HEMOGLOBIN (BEAKER) (test zsqh=058) 26.7 pg 25.7-32.2 MEAN CORPUSCULAR HEMOGLOBIN CONC (BEAKER) (test tade=646) 32.7 GM/DL 32.3-36.5 RED CELL DISTRIBUTION WIDTH (BEAKER) (test fdqd=612) 14.5 % 11.6-14.4 PLATELET COUNT (BEAKER) (test tegx=660) 176 K/CU MM 150-450 MEAN PLATELET VOLUME (BEAKER) (test htlo=422) 12.9 fL 9.4-12.4 NUCLEATED RED BLOOD CELLS (BEAKER) (test uoyw=097) 0 /100 WBC 0-0 NEUTROPHILS RELATIVE PERCENT (BEAKER) (test mczl=601) 81 % LYMPHOCYTES RELATIVE PERCENT (BEAKER) (test zzfg=101) 6 % MONOCYTES RELATIVE PERCENT (BEAKER) (test faec=169) 10 % EOSINOPHILS RELATIVE PERCENT (BEAKER) (test paxy=239) 2 % BASOPHILS RELATIVE PERCENT (BEAKER) (test gebr=962) 0 % NEUTROPHILS ABSOLUTE COUNT (BEAKER) (test swnk=897) 11.91 K/ L 1.78-5.38 LYMPHOCYTES ABSOLUTE COUNT (BEAKER) (test ulsa=288) 0.86 K/ L 1.32-3.57 MONOCYTES ABSOLUTE COUNT (BEAKER) (test rwoy=308) 1.41 K/ L 0.30-0.82 EOSINOPHILS ABSOLUTE COUNT (BEAKER) (test jevn=343) 0.35 K/ L 0.04-0.54 BASOPHILS ABSOLUTE COUNT (BEAKER) (test kefy=511) 0.05 K/ L 0.01-0.08 IMMATURE GRANULOCYTES-RELATIVE PERCENT (BEAKER) (test zsiy=7016) 1 % 0-1 B-TYPE NATRIURETIC FACTOR (BNP)2017-03-24 07:43:00* Test Item Value Reference Range Comments B-TYPE NATRIURETIC PEPTIDE (BEAKER) (test yhnf=081) 540 pg/mL 0-100 POCT-GLUCOSE [id number] 22:31:00* Test Item Value Reference Range Comments POC-GLUCOSE METER (BEAKER) (test bfdj=8547) 218 mg/dL 70-110 TESTED AT [place] [address] POCT-GLUCOSE [id number] 17:14:00* Test Item Value Reference Range Comments POC-GLUCOSE METER (BEAKER) (test ykin=2830) 254 mg/dL 70-110 TESTED AT [place] [address] [id number] 13:20:00* Test Item Value Reference Range Comments ACTIVATED CLOTTING TIME (BEAKER) (test sktv=926) 417 sec TESTED AT [place] [address] [id number] 12:50:00* Test Item Value Reference Range Comments ACTIVATED CLOTTING TIME (BEAKER) (test wiim=713) 296 sec TESTED AT [place] [address] [id number] 12:30:00* Test Item Value Reference Range Comments ACTIVATED CLOTTING TIME (BEAKER) (test icke=988) 268 sec TESTED AT [place] [address] POCT-GLUCOSE [id number] 07:58:00* Test Item Value Reference Range Comments POC-GLUCOSE METER (BEAKER) (test yjve=7879) 245 mg/dL 70-110 TESTED AT [place] [address] [id number] 05:49:00* Test Item Value Reference Range Comments MAGNESIUM (BEAKER) (test llbv=607) 2.3 mg/dL 1.6-2.6 BASIC METABOLIC [id number] 05:49:00* Test Item Value Reference Range Comments SODIUM (BEAKER) (test diqj=003) 137 meq/L 136-145 POTASSIUM (BEAKER) (test onpq=618) 3.6 meq/L 3.5-5.1 CHLORIDE (BEAKER) (test kdkl=550) 95 meq/L 98-107 CO2 (BEAKER) (test qxtr=269) 32 meq/L 22-29 BLOOD UREA NITROGEN (BEAKER) (test koms=025) 52 mg/dL 7-21 CREATININE (BEAKER) (test cgnc=243) 1.92 mg/dL 0.57-1.25 GLUCOSE RANDOM (BEAKER) (test form=494) 230 mg/dL 70-105 CALCIUM (BEAKER) (test pres=292) 8.8 mg/dL 8.4-10.2 EGFR (BEAKER) (test vuzm=9903) 34 mL/min/1.73 sq m ESTIMATED GFR IS NOT ACCURATE CREATININE CLEARANCE IN PREDICTING GLOMERULAR FILTRATION RATE. ESTIMATED GFR IS NOT APPLICABLE FOR DIALYSIS PATIENTS. B-TYPE NATRIURETIC FACTOR (BNP)2017-03-23 05:45:00* Test Item Value Reference Range Comments B-TYPE NATRIURETIC PEPTIDE (BEAKER) (test vcmz=760) 255 pg/mL 0-100 CBC W/PLT COUNT & AUTO [id number] 05:41:00* Test Item Value Reference Range Comments WHITE BLOOD CELL COUNT (BEAKER) (test hszk=549) 12.3 K/ L 3.5-10.5 RED BLOOD CELL COUNT (BEAKER) (test jjhs=819) 4.65 M/ L 4.63-6.08 HEMOGLOBIN (BEAKER) (test jwnm=066) 12.0 GM/DL 13.7-17.5 HEMATOCRIT (BEAKER) (test osxe=479) 37.4 % 40.1-51.0 MEAN CORPUSCULAR VOLUME (BEAKER) (test pdbs=109) 80.4 fL 79.0-92.2 MEAN CORPUSCULAR HEMOGLOBIN (BEAKER) (test hyyy=472) 25.8 pg 25.7-32.2 MEAN CORPUSCULAR HEMOGLOBIN CONC (BEAKER) (test inbt=416) 32.1 GM/DL 32.3-36.5 RED CELL DISTRIBUTION WIDTH (BEAKER) (test szeb=219) 14.3 % 11.6-14.4 PLATELET COUNT (BEAKER) (test hzgs=420) 149 K/CU MM 150-450 MEAN PLATELET VOLUME (BEAKER) (test upof=315) 12.2 fL 9.4-12.4 NUCLEATED RED BLOOD CELLS (BEAKER) (test qjpu=711) 0 /100 WBC 0-0 NEUTROPHILS RELATIVE PERCENT (BEAKER) (test eztf=036) 74 % LYMPHOCYTES RELATIVE PERCENT (BEAKER) (test scap=574) 12 % MONOCYTES RELATIVE PERCENT (BEAKER) (test tqed=104) 10 % EOSINOPHILS RELATIVE PERCENT (BEAKER) (test htrg=773) 3 % BASOPHILS RELATIVE PERCENT (BEAKER) (test rnxz=149) 1 % NEUTROPHILS ABSOLUTE COUNT (BEAKER) (test liga=524) 9.10 K/ L 1.78-5.38 LYMPHOCYTES ABSOLUTE COUNT (BEAKER) (test qjkh=129) 1.41 K/ L 1.32-3.57 MONOCYTES ABSOLUTE COUNT (BEAKER) (test hlvl=437) 1.26 K/ L 0.30-0.82 EOSINOPHILS ABSOLUTE COUNT (BEAKER) (test vczt=113) 0.37 K/ L 0.04-0.54 BASOPHILS ABSOLUTE COUNT (BEAKER) (test oput=474) 0.08 K/ L 0.01-0.08 IMMATURE GRANULOCYTES-RELATIVE PERCENT (BEAKER) (test scvl=2378) 1 % 0-1 POCT-GLUCOSE [id number] 22:04:00* Test Item Value Reference Range Comments POC-GLUCOSE METER (BEAKER) (test mpfb=0271) 279 mg/dL 70-110 TESTED AT [address] [address] POCT-GLUCOSE [id number] 17:45:00* Test Item Value Reference Range Comments POC-GLUCOSE METER (BEAKER) (test hdav=7052) 272 mg/dL 70-110 TESTED AT [address] [address] POCT-GLUCOSE [id number] 12:08:00* Test Item Value Reference Range Comments POC-GLUCOSE METER (BEAKER) (test gzhv=6481) 277 mg/dL 70-110 TESTED AT [address] [address] CREATINE KINASE (CK), TOTAL AND [id number] 10:17:00* Test Item Value Reference Range Comments CREATINE KINASE TOTAL (BEAKER) (test quag=514) 43 U/L 29-200 CREATINE KINASE-MB (BEAKER) (test uqdw=483) 0.8 ng/mL 0.0-6.6 CREATINE KINASE-MB INDEX (BEAKER) (test zrbb=071) 1.9 % CK-MB Reference Range:<6.7 Normal6.7-10.0 Borderline>10.0 Abnormal TROPONIN [id number] 10:17:00* Test Item Value Reference Range Comments TROPONIN I (BEAKER) (test tkuw=293) 0.05 ng/mL 0.00-0.03 Troponin I (TnI) levels must be interpreted in the context of the presenting sym ptoms and the clinical findings. Elevated TnI levels indicate myocardial damage, but are not specific for ischemic heart disease. Elevated TnI levels are seen in patients with other cardiac conditions (including myocarditis and congestive h eart failure), and slight TnI elevations occur in patients with other conditions , including sepsis, renal failure, acidosis, acute neurological disease, and per sistent tachyarrhythmia.BASIC METABOLIC [id number] 10:09:00* Test Item Value Reference Range Comments SODIUM (BEAKER) (test cdcp=171) 136 meq/L 136-145 POTASSIUM (BEAKER) (test fbkw=785) 3.7 meq/L 3.5-5.1 CHLORIDE (BEAKER) (test ignn=931) 93 meq/L 98-107 CO2 (BEAKER) (test djtp=008) 34 meq/L 22-29 BLOOD UREA NITROGEN (BEAKER) (test oitj=515) 45 mg/dL 7-21 CREATININE (BEAKER) (test sgad=271) 1.71 mg/dL 0.57-1.25 GLUCOSE RANDOM (BEAKER) (test pyjv=601) 283 mg/dL 70-105 CALCIUM (BEAKER) (test roag=689) 8.7 mg/dL 8.4-10.2 EGFR (BEAKER) (test qewh=6867) 39 mL/min/1.73 sq m ESTIMATED GFR IS NOT ACCURATE CREATININE CLEARANCE IN PREDICTING GLOMERULAR FILTRATION RATE. ESTIMATED GFR IS NOT APPLICABLE FOR DIALYSIS PATIENTS. HEMOGLOBIN [id number] 08:57:00* Test Item Value Reference Range Comments HEMOGLOBIN A1C (BEAKER) (test tllh=661) 10.4 % 4.3-6.1 POCT-GLUCOSE [id number] 08:06:00* Test Item Value Reference Range Comments POC-GLUCOSE METER (BEAKER) (test qpod=0591) 303 mg/dL 70-110 Baby tested Mother ID used/TESTED AT [facility] [address] [facility] [address] [id number] 06:01:00* Test Item Value Reference Range Comments PARTIAL THROMBOPLASTIN TIME (BEAKER) (test fosi=923) 44.3 seconds 22.5-36.0 PLATELET [id number] 05:54:00* Test Item Value Reference Range Comments PLATELET COUNT (BEAKER) (test zwcf=572) 174 K/CU MM 150-450 Baseline and daily starting prior to initiation of heparin infusionCBC (HEMOGRAM ONLY)2017-03-22 05:54:00* Test Item Value Reference Range Comments WHITE BLOOD CELL COUNT (BEAKER) (test flkj=741) 14.4 K/ L 3.5-10.5 RED BLOOD CELL COUNT (BEAKER) (test clfk=753) 4.99 M/ L 4.63-6.08 HEMOGLOBIN (BEAKER) (test kynv=969) 13.2 GM/DL 13.7-17.5 HEMATOCRIT (BEAKER) (test gnke=311) 39.7 % 40.1-51.0 MEAN CORPUSCULAR VOLUME (BEAKER) (test vptx=007) 79.6 fL 79.0-92.2 MEAN CORPUSCULAR HEMOGLOBIN (BEAKER) (test zvlc=746) 26.5 pg 25.7-32.2 MEAN CORPUSCULAR HEMOGLOBIN CONC (BEAKER) (test jjvk=340) 33.2 GM/DL 32.3-36.5 RED CELL DISTRIBUTION WIDTH (BEAKER) (test spqg=139) 14.2 % 11.6-14.4 PLATELET COUNT (BEAKER) (test ijuq=456) 174 K/CU MM 150-450 MEAN PLATELET VOLUME (BEAKER) (test actv=283) 12.4 fL 9.4-12.4 NUCLEATED RED BLOOD CELLS (BEAKER) (test uxfw=914) 0 /100 WBC 0-0 CT, CHEST WITH IV CONTRAST- PE TEST [id number] 01:51:00FINAL REPORT CT, CHEST WITH IV CONTRAST- PE TEST DESIGN INDICATION: Chest pain, acute, PE suspected, intermed prob, negative D-dimer COMPARISON: None TECHNIQUE: Contrast enhanced CT examination of the chest in the pulmonary arterial phase from the bases to the apices. Orthogonal reformatted images as well as coronal maximum intensity projection images were obtained. DOSE RE DUCTION: Dose modulation, iterative reconstruction, and/or weight-based adjustme nt of the mA/kV was utilized to reduce the radiation dose to as low as reasonabl y achievable. FINDINGS: Lungs and pleura: No focal opacity. Basilar subsegmental atelectasis. No effusion or pneumothorax.Central airways: Patent.Mediastinum: No adenopathy.Heart and pericardium: Enlarged heart. No pericardial effusion. Eugene cified coronary artery disease. Great vessels: Normal calibers.Pulmonary embolis m: None. Regional skeletal structures: No aggressive lesion. Flowing anterior os teophytosis compatible with DISH. Included upper abdomen: No acute abnormalities . Additional findings: None. IMPRESSION: No pulmonary embolism. No acute intrat horacic abnormality. Signed: JR Christina Robert MDReport Verified Date/Jaiden e: 03/22/2017 01:51:40 Reading Location: [address] Transitional Reading Room TINE KINASE (CK), TOTAL AND [id number] 01:37:00* Test Item Value Reference Range Comments CREATINE KINASE TOTAL (BEAKER) (test xdda=393) 43 U/L 29-200 CREATINE KINASE-MB (BEAKER) (test bnla=788) 0.8 ng/mL 0.0-6.6 CREATINE KINASE-MB INDEX (BEAKER) (test ipwl=078) 1.9 % CK-MB Reference Range:<6.7 Normal6.7-10.0 Borderline>10.0 Abnormal TROPONIN [id number] 01:37:00* Test Item Value Reference Range Comments TROPONIN I (BEAKER) (test hkjg=139) 0.06 ng/mL 0.00-0.03 Troponin I (TnI) levels must be interpreted in the context of the presenting sym ptoms and the clinical findings. Elevated TnI levels indicate myocardial damage, but are not specific for ischemic heart disease. Elevated TnI levels are seen in patients with other cardiac conditions (including myocarditis and congestive h eart failure), and slight TnI elevations occur in patients with other conditions , including sepsis, renal failure, acidosis, acute neurological disease, and per sistent tachyarrhythmia.POCT-GLUCOSE [id number] 23:10:00* Test Item Value Reference Range Comments POC-GLUCOSE METER (OMAIRAAKER) (test czly=8752) 168 mg/dL 70-110 TESTED AT [facility] [address] [facility] [address] [id number] 22:17:00* Test Item Value Reference Range Comments PARTIAL THROMBOPLASTIN TIME (BEAKER) (test gyca=571) 35.5 seconds 22.5-36.0 Prior to initiating heparinCREATINE KINASE (CK), TOTAL AND [id number] 21:23:00 * Test Item Value Reference Range Comments CREATINE KINASE TOTAL (BEAKER) (test wvjk=669) 56 U/L 29-200 CREATINE KINASE-MB (BEAKER) (test ckuj=153) 1.0 ng/mL 0.0-6.6 CREATINE KINASE-MB INDEX (BEAKER) (test cosw=035) 1.8 % CK-MB Reference Range:<6.7 Normal6.7-10.0 Borderline>10.0 Abnormal TROPONIN [id number] 21:23:00* Test Item Value Reference Range Comments TROPONIN I (BEAKER) (test jsdp=623) 0.06 ng/mL 0.00-0.03 Troponin I (TnI) levels must be interpreted in the context of the presenting sym ptoms and the clinical findings. Elevated TnI levels indicate myocardial damage, but are not specific for ischemic heart disease. Elevated TnI levels are seen in patients with other cardiac conditions (including myocarditis and congestive h eart failure), and slight TnI elevations occur in patients with other conditions , including sepsis, renal failure, acidosis, acute neurological disease, and per sistent tachyarrhythmia.B-TYPE NATRIURETIC FACTOR (BNP)2017-03-21 21:23:00* Test Item Value Reference Range Comments B-TYPE NATRIURETIC PEPTIDE (BEAKER) (test keik=663) 308 pg/mL 0-100 [id number] 21:21:00* Test Item Value Reference Range Comments D-DIMER QUANTITATIVE (BEAKER) (test kogn=429) 0.59 MG/L FEU <0.50 Intended Use: The D-Dimer Assay can be used to aid in the diagnosis of Deep Vein Thrombosis (DVT) and Pulmonary Embolism Disease (PED).In patients with low pre- test probability, various studies concerning STA Liatest D-dimer test have repor funmi that with a cutoff value of 0.50 MG/L FEU, the Negative Predictive Value (CROCHETER HAND V) regarding the exclusion of thrombosis is within 95-100% range.COMPREHENSIVE METABOLIC [id number] 21:16:00* Test Item Value Reference Range Comments TOTAL PROTEIN (BEAKER) (test ahfh=933) 7.4 gm/dL 6.0-8.3 Specimen slightly hemolyzed ALBUMIN (BEAKER) (test zpbj=0743) 4.0 g/dL 3.5-5.0 Specimen slightly hemolyzed ALKALINE PHOSPHATASE (BEAKER) (test ehxp=906) 89 U/L 40-150 BILIRUBIN TOTAL (BEAKER) (test riqo=618) 1.1 mg/dL 0.2-1.2 Specimen slightly hemolyzed SODIUM (BEAKER) (test ofyc=081) 136 meq/L 136-145 POTASSIUM (BEAKER) (test vush=710) 3.6 meq/L 3.5-5.1 Specimen slightly hemolyzed CHLORIDE (BEAKER) (test svfq=676) 93 meq/L 98-107 CO2 (BEAKER) (test nfwf=188) 29 meq/L 22-29 BLOOD UREA NITROGEN (BEAKER) (test nagv=951) 40 mg/dL 7-21 CREATININE (BEAKER) (test ndqy=597) 1.46 mg/dL 0.57-1.25 Specimen slightly hemolyzed GLUCOSE RANDOM (BEAKER) (test vggx=819) 298 mg/dL 70-105 CALCIUM (BEAKER) (test ctpm=230) 9.3 mg/dL 8.4-10.2 AST (SGOT) (BEAKER) (test lxhl=493) 18 U/L 5-34 Specimen slightly hemolyzed ALT (SGPT) (BEAKER) (test cdep=195) 12 U/L 6-55 Specimen slightly hemolyzed EGFR (BEAKER) (test offb=3935) 47 mL/min/1.73 sq m ESTIMATED GFR IS NOT ACCURATE CREATININE CLEARANCE IN PREDICTING GLOMERULAR FILTRATION RATE. ESTIMATED GFR IS NOT APPLICABLE FOR DIALYSIS PATIENTS. LIPID [id number] 21:16:00* Test Item Value Reference Range Comments TRIGLYCERIDES (BEAKER) (test osnz=349) 329 mg/dL Specimen slightly hemolyzed CHOLESTEROL (BEAKER) (test qpgh=277) 218 mg/dL Specimen slightly hemolyzed HDL CHOLESTEROL (BEAKER) (test gzwz=745) 37 mg/dL LDL CHOLESTEROL CALCULATED (BEAKER) (test bngm=217) 115 mg/dL Triglyceride Reference Range: Low Risk <150 Borderline 150-199 High Risk 200-499 Very High Risk >=500Cholesterol Reference Range: Low Risk <200 Borderline 200-239 High Risk >240HDL Cholesterol Reference Range: Low Risk >=60 High Risk <40LDL Cholesterol Reference Range: Optimal <100 Near Optimal 100-129 Borderline 130-159 High 160-189 Very High >=190 C- REACTIVE [id number] 21:16:00* Test Item Value Reference Range Comments C-REACTIVE PROTEIN (BEAKER) (test ywgy=252) 11.24 mg/dL 0.00-0.50 CREATINE KINASE (CK), TOTAL AND [id number] 20:58:00* Test Item Value Reference Range Comments CREATINE KINASE TOTAL (BEAKER) (test mcpq=116) 58 U/L 29-200 CREATINE KINASE-MB (BEAKER) (test qerm=129) 1.0 ng/mL 0.0-6.6 CREATINE KINASE-MB INDEX (BEAKER) (test gybk=793) 1.7 % CK-MB Reference Range:<6.7 Normal6.7-10.0 Borderline>10.0 Abnormal TROPONIN [id number] 20:58:00* Test Item Value Reference Range Comments TROPONIN I (BEAKER) (test ovbr=714) 0.06 ng/mL 0.00-0.03 Troponin I (TnI) levels must be interpreted in the context of the presenting sym ptoms and the clinical findings. Elevated TnI levels indicate myocardial damage, but are not specific for ischemic heart disease. Elevated TnI levels are seen in patients with other cardiac conditions (including myocarditis and congestive h eart failure), and slight TnI elevations occur in patients with other conditions , including sepsis, renal failure, acidosis, acute neurological disease, and per sistent tachyarrhythmia.PROTHROMBIN TIME/[id number] 20:56:00* Test Item Value Reference Range Comments PROTIME (BEAKER) (test lspi=342) 14.5 seconds 11.7-14.7 INR (BEAKER) (test bple=456) 1.1 <=5.9 RECOMMENDED COUMADIN/WARFARIN INR THERAPY RANGESSTANDARD DOSE: 2.0 - 3.0 Inclu breanne: PROPHYLAXIS for venous thrombosis, systemic embolization; TREATMENT for cordelia ous thrombosis and/or pulmonary embolus.HIGH RISK: Target INR is 2.5-3.5 for pat ients with mechanical heart valves.PLATELET [id number] 20:46:00* Test Item Value Reference Range Comments PLATELET COUNT (BEAKER) (test bfks=150) 184 K/CU MM 150-450 HEMOGLOBIN AND [id number] 20:46:00* Test Item Value Reference Range Comments HEMOGLOBIN (BEAKER) (test jftv=272) 14.1 GM/DL 13.7-17.5 HEMATOCRIT (BEAKER) (test kvhn=973) 41.9 % 40.1-51.0 POCT-GLUCOSE [id number] 09:00:00* Test Item Value Reference Range Comments POC-GLUCOSE METER (BEAKER) (test oxpc=1981) 216 mg/dL 70-110 TESTED AT [facility] [address] [facility] [address] CBC W/PLT COUNT & AUTO [id number] 05:49:00* Test Item Value Reference Range Comments WHITE BLOOD CELL COUNT (BEAKER) (test gfcr=442) 7.2 K/ L 4.0-10.0 RED BLOOD CELL COUNT (BEAKER) (test kvju=295) 4.20 M/ L 4.20-5.80 HEMOGLOBIN (BEAKER) (test gtmh=838) 11.7 GM/DL 13.0-16.8 HEMATOCRIT (BEAKER) (test sdye=425) 36.0 % 40.0-50.0 MEAN CORPUSCULAR VOLUME (BEAKER) (test hflu=198) 85.7 fL 82.0-98.0 MEAN CORPUSCULAR HEMOGLOBIN (BEAKER) (test iumo=311) 27.9 pg 27.0-33.0 MEAN CORPUSCULAR HEMOGLOBIN CONC (BEAKER) (test hybl=158) 32.6 GM/DL 32.0-36.0 RED CELL DISTRIBUTION WIDTH (BEAKER) (test hwac=692) 13.5 % 10.3-14.2 PLATELET COUNT (BEAKER) (test zjua=004) 152 K/CU MM 150-430 MEAN PLATELET VOLUME (BEAKER) (test bctk=124) 9.2 fL 6.5-10.5 NUCLEATED RED BLOOD CELLS (BEAKER) (test kaxj=350) 0 /100 WBC 0-0 NEUTROPHILS RELATIVE PERCENT (BEAKER) (test ytms=134) 60 % LYMPHOCYTES RELATIVE PERCENT (BEAKER) (test znmu=845) 27 % MONOCYTES RELATIVE PERCENT (BEAKER) (test qlas=361) 9 % EOSINOPHILS RELATIVE PERCENT (BEAKER) (test qeur=516) 3 % BASOPHILS RELATIVE PERCENT (BEAKER) (test xfwq=095) 1 % NEUTROPHILS ABSOLUTE COUNT (BEAKER) (test vcay=520) 4.31 K/ L 1.80-8.00 LYMPHOCYTES ABSOLUTE COUNT (BEAKER) (test mhzy=035) 1.96 K/ L 1.48-4.50 MONOCYTES ABSOLUTE COUNT (BEAKER) (test qnmg=084) 0.64 K/ L 0.00-1.30 EOSINOPHILS ABSOLUTE COUNT (BEAKER) (test eswt=253) 0.25 K/ L 0.00-0.50 BASOPHILS ABSOLUTE COUNT (BEAKER) (test seuh=425) 0.09 K/ L 0.00-0.20 [id number] 05:11:00* Test Item Value Reference Range Comments PHOSPHORUS (BEAKER) (test iiaj=515) 2.4 mg/dL 2.3-4.7 [id number] 05:11:00* Test Item Value Reference Range Comments MAGNESIUM (BEAKER) (test obdu=654) 2.1 mg/dL 1.6-2.6 BASIC METABOLIC [id number] 05:11:00* Test Item Value Reference Range Comments SODIUM (BEAKER) (test snzp=151) 144 meq/L 136-145 POTASSIUM (BEAKER) (test uyrb=437) 3.4 meq/L 3.5-5.1 CHLORIDE (BEAKER) (test wbgv=632) 104 meq/L 98-107 CO2 (BEAKER) (test bysx=096) 28 meq/L 22-29 BLOOD UREA NITROGEN (BEAKER) (test lqew=450) 34 mg/dL 7-21 CREATININE (BEAKER) (test tait=682) 1.39 mg/dL 0.57-1.25 GLUCOSE RANDOM (BEAKER) (test nstl=751) 150 mg/dL 70-105 CALCIUM (BEAKER) (test vylr=006) 9.4 mg/dL 8.4-10.2 EGFR (BEAKER) (test zldd=3665) 50 mL/min/1.73 sq m ESTIMATED GFR IS NOT ACCURATE CREATININE CLEARANCE IN PREDICTING GLOMERULAR FILTRATION RATE. ESTIMATED GFR IS NOT APPLICABLE FOR DIALYSIS PATIENTS. POCT-GLUCOSE [id number] 21:45:00* Test Item Value Reference Range Comments POC-GLUCOSE METER (BEAKER) (test taeb=9591) 250 mg/dL 70-110 TESTED AT [address] [address] POCT-GLUCOSE [id number] 18:16:00* Test Item Value Reference Range Comments POC-GLUCOSE METER (BEAKER) (test oxwc=3519) 189 mg/dL 70-110 TESTED AT [address] [address] POCT-GLUCOSE [id number] 15:39:00* Test Item Value Reference Range Comments POC-GLUCOSE METER (BEAKER) (test rzss=9359) 256 mg/dL 70-110 TESTED AT [address] [address] POCT-GLUCOSE [id number] 11:50:00* Test Item Value Reference Range Comments POC-GLUCOSE METER (BEAKER) (test mzmb=2014) 213 mg/dL 70-110 TESTED AT [address] [address] POCT-GLUCOSE [id number] 08:14:00* Test Item Value Reference Range Comments POC-GLUCOSE METER (BEAKER) (test qghk=9713) 149 mg/dL 70-110 TESTED AT [address] [address] BASIC METABOLIC [id number] 05:06:00* Test Item Value Reference Range Comments SODIUM (BEAKER) (test wtbp=537) 142 meq/L 136-145 POTASSIUM (BEAKER) (test ewfh=644) 3.6 meq/L 3.5-5.1 CHLORIDE (BEAKER) (test kkdb=278) 100 meq/L 98-107 CO2 (BEAKER) (test tirm=183) 32 meq/L 22-29 BLOOD UREA NITROGEN (BEAKER) (test dvyv=928) 47 mg/dL 7-21 CREATININE (BEAKER) (test rxfd=383) 1.82 mg/dL 0.57-1.25 GLUCOSE RANDOM (BEAKER) (test ckou=774) 173 mg/dL 70-105 CALCIUM (BEAKER) (test hqkn=095) 9.7 mg/dL 8.4-10.2 EGFR (BEAKER) (test pxke=0349) 36 mL/min/1.73 sq m ESTIMATED GFR IS NOT ACCURATE CREATININE CLEARANCE IN PREDICTING GLOMERULAR FILTRATION RATE. ESTIMATED GFR IS NOT APPLICABLE FOR DIALYSIS PATIENTS. POCT-GLUCOSE [id number] 21:11:00* Test Item Value Reference Range Comments POC-GLUCOSE METER (BEAKER) (test pbnw=5738) 250 mg/dL 70-110 TESTED AT [place] [id number] POCT-GLUCOSE [id number] 16:51:00* Test Item Value Reference Range Comments POC-GLUCOSE METER (BEAKER) (test riyp=6599) 228 mg/dL 70-110 TESTED AT [place] [id number] POCT-GLUCOSE [id number] 11:59:00* Test Item Value Reference Range Comments POC-GLUCOSE METER (BEAKER) (test idkb=3866) 247 mg/dL 70-110 TESTED AT [address] [address] POCT-GLUCOSE [id number] 08:50:00* Test Item Value Reference Range Comments POC-GLUCOSE METER (BEAKER) (test drrq=2262) 162 mg/dL 70-110 TESTED AT [address] [address] BASIC METABOLIC [id number] 05:47:00* Test Item Value Reference Range Comments SODIUM (BEAKER) (test qbhj=316) 141 meq/L 136-145 POTASSIUM (BEAKER) (test xhdo=610) 3.4 meq/L 3.5-5.1 CHLORIDE (BEAKER) (test hqlp=800) 96 meq/L 98-107 CO2 (BEAKER) (test gpme=022) 34 meq/L 22-29 BLOOD UREA NITROGEN (BEAKER) (test pimr=259) 56 mg/dL 7-21 CREATININE (BEAKER) (test qnxk=799) 2.21 mg/dL 0.57-1.25 GLUCOSE RANDOM (BEAKER) (test mvpa=992) 163 mg/dL 70-105 CALCIUM (BEAKER) (test bhzf=568) 9.2 mg/dL 8.4-10.2 EGFR (BEAKER) (test gjny=9975) 29 mL/min/1.73 sq m ESTIMATED GFR IS NOT ACCURATE CREATININE CLEARANCE IN PREDICTING GLOMERULAR FILTRATION RATE. ESTIMATED GFR IS NOT APPLICABLE FOR DIALYSIS PATIENTS. HEPATIC FUNCTION [id number] 05:35:00* Test Item Value Reference Range Comments TOTAL PROTEIN (BEAKER) (test yurf=874) 6.5 gm/dL 6.0-8.3 ALBUMIN (BEAKER) (test jzxc=2574) 3.9 g/dL 3.5-5.0 BILIRUBIN TOTAL (BEAKER) (test jykh=490) 0.5 mg/dL 0.2-1.2 BILIRUBIN DIRECT (BEAKER) (test pdjs=215) 0.2 mg/dL 0.1-0.5 ALKALINE PHOSPHATASE (BEAKER) (test acwe=176) 53 U/L 40-150 AST (SGOT) (BEAKER) (test wocb=666) 16 U/L 5-34 ALT (SGPT) (BEAKER) (test czuz=195) 11 U/L 6-55 CBC W/PLT COUNT & AUTO [id number] 05:15:00* Test Item Value Reference Range Comments WHITE BLOOD CELL COUNT (BEAKER) (test wgpb=812) 8.1 K/ L 4.0-10.0 RED BLOOD CELL COUNT (BEAKER) (test uehn=312) 4.13 M/ L 4.20-5.80 HEMOGLOBIN (BEAKER) (test dggt=961) 11.3 GM/DL 13.0-16.8 HEMATOCRIT (BEAKER) (test iomh=819) 35.4 % 40.0-50.0 MEAN CORPUSCULAR VOLUME (BEAKER) (test ibjg=380) 85.5 fL 82.0-98.0 MEAN CORPUSCULAR HEMOGLOBIN (BEAKER) (test oqxl=649) 27.2 pg 27.0-33.0 MEAN CORPUSCULAR HEMOGLOBIN CONC (BEAKER) (test qxpg=675) 31.8 GM/DL 32.0-36.0 RED CELL DISTRIBUTION WIDTH (BEAKER) (test wmsl=292) 13.6 % 10.3-14.2 PLATELET COUNT (BEAKER) (test udjh=680) 155 K/CU MM 150-430 MEAN PLATELET VOLUME (BEAKER) (test zyvz=121) 9.0 fL 6.5-10.5 NUCLEATED RED BLOOD CELLS (BEAKER) (test nnhl=088) 0 /100 WBC 0-0 NEUTROPHILS RELATIVE PERCENT (BEAKER) (test eqnt=267) 65 % LYMPHOCYTES RELATIVE PERCENT (BEAKER) (test hnit=798) 22 % MONOCYTES RELATIVE PERCENT (BEAKER) (test myut=339) 9 % EOSINOPHILS RELATIVE PERCENT (BEAKER) (test suoj=527) 3 % BASOPHILS RELATIVE PERCENT (BEAKER) (test atrh=642) 1 % NEUTROPHILS ABSOLUTE COUNT (BEAKER) (test ldkf=063) 5.24 K/ L 1.80-8.00 LYMPHOCYTES ABSOLUTE COUNT (BEAKER) (test plcl=908) 1.74 K/ L 1.48-4.50 MONOCYTES ABSOLUTE COUNT (BEAKER) (test zxft=511) 0.77 K/ L 0.00-1.30 EOSINOPHILS ABSOLUTE COUNT (BEAKER) (test ivkx=063) 0.27 K/ L 0.00-0.50 BASOPHILS ABSOLUTE COUNT (BEAKER) (test zzlx=621) 0.06 K/ L 0.00-0.20 0.00POCT-GLUCOSE [id number] 22:45:00* Test Item Value Reference Range Comments POC-GLUCOSE METER (BEAKER) (test dtpy=0220) 224 mg/dL 70-110 TESTED AT [facility] [address] [facility] [address]
--- NOTE | 2018-05-11 16:24 | Diagnostic Imaging Report ---
EXAMINATION: PA and lateral views of the chest. COMPARISON: None CLINICAL HISTORY: Flulike symptoms DISCUSSION: Lungs are well-inflated. No focal airspace consolidation, pleural effusion, or pneumothorax. Left subclavian approach implanted cardiac device body projects over the axilla. Leads project over the right atrium and right ventricle. Coronary artery stents. Normal heart size. No overt pulmonary edema. No acute osseous abnormality. Multilevel bridging thoracic spine osteophytes. IMPRESSION: No acute cardiopulmonary abnormality. Signed by: Dr. Khoa Spicer M.D. on 05/11/2018 4:21 PM
[2018-05-11] MEDS ORDERED: PROMETHAZINE HCL (IM) 25 MG/ML VIAL IM ONE (17:00)
[2018-05-11 17:46] VITALS: BP 146/72
== END 2018-05-11 17:47 | disposition home or self-care (01) ==
LOC: FSED 15:35
DX: R50.9 Fever, unspecified (principal); R05 Cough; R11.2 Nausea with vomiting, unspecified; J11.1 Influenza due to unidentified influenza virus with other respiratory manifestations; I10 Essential (primary) hypertension; E11.9 Type 2 diabetes mellitus without complications; I25.10 Atherosclerotic heart disease of native coronary artery without angina pectoris; K21.9 Gastro-esophageal reflux disease without esophagitis
CPT/HCPCS: 71046; 87400; 99283; J2550

== ENCOUNTER 2024-02-12 15:20 | Emergency (ER) | payer MEDICARE ==
[~2024-02-12] VITALS: Ht 180.3 cm; Wt 103.0 kg
[2024-02-12 16:36] VITALS: PULSE 94; RESP 18; TEMP 97.8
[2024-02-12 18:04] VITALS: BP 131/66; PULSE 82; RESP 17; TEMP 98.2; O2SAT 96
== END 2024-02-12 18:00 | disposition home or self-care (01) ==
LOC: FSED 15:32
DX: Z46.6 Encounter for fitting and adjustment of urinary device (principal); N40.1 Benign prostatic hyperplasia with lower urinary tract symptoms; R33.8 Other retention of urine; E11.9 Type 2 diabetes mellitus without complications; I50.9 Heart failure, unspecified; I25.10 Atherosclerotic heart disease of native coronary artery without angina pectoris; E78.5 Hyperlipidemia, unspecified; K21.9 Gastro-esophageal reflux disease without esophagitis; Z85.828 Personal history of other malignant neoplasm of skin; Z95.5 Presence of coronary angioplasty implant and graft; Z95.810 Presence of automatic (implantable) cardiac defibrillator
CPT/HCPCS: 51700; 99283

== ENCOUNTER 2024-03-16 09:06 | Emergency (ER) | payer MEDICARE ==
[~2024-03-16] VITALS: Ht 180.3 cm; Wt 99.5 kg
[2024-03-16 09:39] VITALS: PULSE 76; RESP 16; TEMP 98; O2SAT 97
== END 2024-03-16 09:56 | disposition home or self-care (01) ==
LOC: FSED 09:14
DX: Z46.6 Encounter for fitting and adjustment of urinary device (principal); I10 Essential (primary) hypertension; E11.40 Type 2 diabetes mellitus with diabetic neuropathy, unspecified; I50.9 Heart failure, unspecified; I25.10 Atherosclerotic heart disease of native coronary artery without angina pectoris; E78.5 Hyperlipidemia, unspecified; K21.9 Gastro-esophageal reflux disease without esophagitis; Z85.828 Personal history of other malignant neoplasm of skin; Z95.5 Presence of coronary angioplasty implant and graft; Z95.810 Presence of automatic (implantable) cardiac defibrillator
CPT/HCPCS: 99283

== ENCOUNTER 2024-04-25 06:56 | Emergency (ER) | payer MEDICARE ==
[~2024-04-25] VITALS: Ht 180.3 cm; Wt 99.3 kg
[2024-04-25 07:01] VITALS: PULSE 66; RESP 15; TEMP 98.4; O2SAT 96
== END 2024-04-25 08:00 | disposition home or self-care (01) ==
LOC: FSED 07:01
DX: Z46.6 Encounter for fitting and adjustment of urinary device (principal); I10 Essential (primary) hypertension; E11.40 Type 2 diabetes mellitus with diabetic neuropathy, unspecified; I50.9 Heart failure, unspecified; E78.5 Hyperlipidemia, unspecified; I48.91 Unspecified atrial fibrillation; I25.10 Atherosclerotic heart disease of native coronary artery without angina pectoris; K21.9 Gastro-esophageal reflux disease without esophagitis; Z85.828 Personal history of other malignant neoplasm of skin; Z95.5 Presence of coronary angioplasty implant and graft; Z95.810 Presence of automatic (implantable) cardiac defibrillator
CPT/HCPCS: 99284

== ENCOUNTER 2024-04-27 15:26 | Emergency (ER) | payer MEDICARE ==
[~2024-04-27] VITALS: Ht 180.3 cm; Wt 100.4 kg
[2024-04-27 17:25] VITALS: PULSE 86; RESP 16; TEMP 98.3; O2SAT 97
== END 2024-04-27 17:34 | disposition home or self-care (01) ==
LOC: FSED 15:32
DX: Z46.6 Encounter for fitting and adjustment of urinary device (principal); I10 Essential (primary) hypertension; E11.9 Type 2 diabetes mellitus without complications; I50.9 Heart failure, unspecified; I48.91 Unspecified atrial fibrillation; I25.811 Atherosclerosis of native coronary artery of transplanted heart without angina pectoris; E78.5 Hyperlipidemia, unspecified; K21.9 Gastro-esophageal reflux disease without esophagitis; Z85.828 Personal history of other malignant neoplasm of skin; Z95.5 Presence of coronary angioplasty implant and graft
CPT/HCPCS: 51700; 99282